=== PATIENT | female | born 1990 | race Caucasian/White ===

== ENCOUNTER 2017-07-14 01:11 | Emergency (ER) | payer SELFPAY ==
[~2017-07-14] VITALS: Ht 165.1 cm; Wt 128.4 kg
[~2017-07-14 01:11] MED LIST: ACE3 PO; CEPH250C37 PO; PROM-110 PO
--- NOTE | 2017-07-14 01:17 | ER Report ---
History and Physical Time Seen By MD: 01:13 HPI/ROS CHIEF COMPLAINT: Right lower lip swelling HISTORY OF PRESENT ILLNESS: 27-year-old female presents ambulatory to the ER concerned about her right lower lip. She had a lip piercing through her right lower lip. She noted some swelling and pain there. She removed the piercing. She notes a lump there. She notes moderate pain. There's been no drainage. Patient notes no difficulty swallowing or breathing. She denies dental pain Allergies: Coded Allergies: ondansetron (Verified Allergy, Intermediate, 03/26/17) rash, swelling Home Meds Active Scripts Cephalexin Monohydrate (CEPHALEXIN) 500 Mg Cap, 500 MG PO TID, #30 CAP TAKE 1 CAPSULE BY MOUTH tid Prov:NATAN CORONA DO 07/14/17 Discontinued Scripts Cephalexin (KEFLEX) 250 Mg Capsule, 500 MG PO Q6H, #26 CAPSULE Prov:EDDIE CURIEL [employer] 03/26/17 Past Medical/Surgical History Patient has a past medical and surgical history of migraines and depression broken right pinky finger. Reviewed Nurses Notes: Yes Old Medical Records Reviewed: Yes Hx Substance Use Disorder: No Constitutional Vital Sign - Last 24 Hours 07/14/17 07/14/17 01:15 01:35 Temp 97.9 Pulse 85 84 Resp 18 16 B/P (MAP) 142/88 139/94 (109) Pulse Ox 96 93 O2 Delivery Room Air Physical Exam General appearance: Alert no distress. Vital signs stable, afebrile HEENT: TMs normal, TMJs nontender, examination of the right lower lip reveals induration at the site of a piercing. Oropharynx without redness or exudate, teeth are good repair. Anterior cervical region is without lymphadenopathy Respiratory: Chest is non tender, lungs are clear to auscultation. Cardiac: Regular rate and rhythm DIFFERENTIAL DIAGNOSIS: After history and physical exam differential diagnosis was considered for cellulitis, mucous cyst, retained foreign body, allergic reaction Medical Decision Making ED Course/Re-evaluation ED Course Patient was admitted to an examination room. H&P was done. The differential diagnoses was considered. On clinical examination. Patient likely has an infection from the piercing site in her lip. She'll be covered with Keflex 500 mg 3 times a day. She is advised ibuprofen for pain treatment. She is advised warm compresses to her lip. She is advised follow-up with her primary care if unimproved in 3-5 days. Decision to Disposition Date: Jul 14, 2017 Decision to Disposition Time: 01:24 Depart Departure Latest Vital Signs Vital Signs Date Time Temp Pulse Resp B/P (MAP) Pulse Ox O2 Delivery O2 Flow Rate FiO2 07/14/17 01:35 84 16 139/94 (109) 93 07/14/17 01:15 97.9 Room Air Impression: Primary Impression: Cellulitis, lip Condition: Improved Disposition: HOME OR SELF-CARE New Scripts Cephalexin Monohydrate (CEPHALEXIN) 500 Mg Cap 500 MG PO TID, #30 CAP TAKE 1 CAPSULE BY MOUTH tid Prov: NATAN CORONA DO 07/14/17 Patient Instructions: Cellulitis (ED) Additional Instructions: Take ibuprofen 200 mg 3 tablets 3 times a day for pain relief Apply warm compresses or heating pad to your lip area 30 minutes 3-4 times per day Take Keflex 500 mg 3 times daily until gone Follow-up with her primary care if unimproved in 3-5 days NATAN CORONA DO Jul 14, 2017 01:17
[2017-07-14] MEDS ORDERED: CEPH500C24 PO (01:25)
[2017-07-14] MEDS ORDERED: CEPHALEXIN MONO 500 MG CAP PO ONE (01:30)
[2017-07-14 01:35] VITALS: BP 139/94
== END 2017-07-14 01:37 | disposition home or self-care (01) ==
LOC: ER 01:13
DX: K13.0 Diseases of lips (principal)
CPT/HCPCS: 99281

== ENCOUNTER 2017-07-31 21:26 | Emergency (ER) | payer SELFPAY ==
[~2017-07-31 21:26] MED LIST changes: +CEPH500C24 PO
[2017-07-31] MEDS ORDERED: NS(*) 0.9% 1000 ML BAG 1,000 ML IV ONE (21:42)
[2017-07-31] MEDS ORDERED: PROMETHAZINE 25 MG/ML 1 ML AMP IVP ONE (21:45)
[2017-07-31 22:19] LABS: PLATELET COUNT, AUTOMATED 246 K/uL (150-450)
--- NOTE | 2017-07-31 22:48 | ER Report ---
History and Physical Time Seen By MD: 21:49 HPI/ROS CHIEF COMPLAINT: Vomiting, epigastric pain HISTORY OF PRESENT ILLNESS: 27-year-old female presented with her to the ER complaining of vomiting all day long. She's been unable to keep anything down. She denies exposure to ill contacts or consumption of bad food. She's had no diarrhea. She denies fever or chills. She denies dysuria, frequency or hematuria. She's had no previous history of abdominal surgery. REVIEW OF SYSTEMS: Respiratory: No cough, no dyspnea. Cardiovascular: No chest pain, no palpitations. Gastrointestinal: As above Musculoskeletal: No back pain. Allergies: Coded Allergies: ondansetron (Verified Allergy, Intermediate, 03/26/17) rash, swelling Home Meds Active Scripts Oxycodone Hcl/Acetaminophen (PERCOCET 5-325 MG TABLET) 1 Each Tablet, 1 EACH PO Q4-6H Y for PAIN, #12 Prov:CJNATAN DO 07/31/17 Promethazine Hcl (PROMETHAZINE HCL) 25 Mg Tablet, 25 MG PO Q4H Y for NAUSEA/ VOMITING, #14 TAB Prov:NATAN CORONA DO 07/31/17 Discontinued Scripts Cephalexin Monohydrate (CEPHALEXIN) 500 Mg Cap, 500 MG PO TID, #30 CAP TAKE 1 CAPSULE BY MOUTH tid Prov:NATAN CORONA 07/14/17 Reviewed Nurses Notes: Yes Old Medical Records Reviewed: Yes Hx Substance Use Disorder: No Constitutional Vital Sign - Last 24 Hours 07/31/17 07/31/17 07/31/17 07/31/17 21:34 21:41 21:49 21:56 Temp 97.8 Pulse 123 118 106 Resp 20 B/P (MAP) 123/94 (104) 123/94 Pulse Ox 92 92 90 O2 Delivery Room Air 07/31/17 07/31/17 07/31/17 07/31/17 22:11 22:26 22:41 22:56 Pulse 113 96 87 92 B/P (MAP) 141/58 (85) Pulse Ox 90 91 96 92 07/31/17 07/31/17 23:00 23:05 Pulse 98 B/P (MAP) 108/88 (95) Pulse Ox 92 Physical Exam General Appearance: The patient is alert, has no immediate need for airway protection and no current signs of toxicity. Vital signs stable, afebrile, slightly pale appearing, pulse ox normal HEENT: Pupils equal and round no injection. Oropharynx with dry mucous membranes. Throat without erythema Respiratory: Chest is non tender, lungs are clear to auscultation. Cardiac: regular rate and rhythm Gastrointestinal: Abdomen is soft and non tender, no masses, bowel sounds normal. Musculoskeletal: Neck: Neck is supple and non tender. No lymphadenopathy Extremities have full range of motion and are non tender. Skin: No rashes or lesions. DIFFERENTIAL DIAGNOSIS: After history and physical exam differential diagnosis was considered for abdominal pain including but not limited to appendicitis, cholecystitis, gastritis and urinary tract infection. Medical Decision Making Data Points Result Diagram: 07/31/17220807/31/172208 Laboratory Hematology Test 07/31/17 21:40 07/31/17 22:09 Urine Color Yellow Urine Clarity Cloudy Urine pH 5.0 pH (4.8-9.5) Urine Specific [place] 1.027 Urine Protein 30 mg/dL (NEGATIVE) Urine Glucose (UA) Negative mg/dL (NEGATIVE) Urine Ketones Negative mg/dL (NEGATIVE) Urine Blood Negative (NEGATIVE) Urine Nitrite Negative (NEGATIVE) Urine Bilirubin Negative (NEGATIVE) Urine Urobilinogen 2.0 mg/dL (0.2-1.9) Urine Leukocyte Esterase Negative (NEGATIVE) Urine RBC 3 /HPF (0-2/HPF) Urine WBC 2 /HPF (0-5/HPF) Urine Squamous Epithelial Cells Many /LPF (</=FEW) Urine Amorphous Crystals Few /HPF Urine Bacteria Negative /HPF (NONE-FEW) Urine Mucus Few /HPF (NONE-FEW) Red Blood Count 5.80 M/uL (4.17-5.56) Mean Corpuscular Volume 87.4 fL (80.0-96.0) Mean Corpuscular Hemoglobin 30.1 pg (26.0-33.0) Mean Corpuscular Hemoglobin Concent 34.4 g/dL (32.0-36.0) Red Cell Distribution Width 13.6 % (11.5-14.5) Mean Platelet Volume 9.7 fL (7.2-11.1) Neutrophils (%) (Auto) 93.7 % (39.4-72.5) Lymphocytes (%) (Auto) 3.1 % (17.6-49.6) Monocytes (%) (Auto) 2.3 % (4.1-12.4) Eosinophils (%) (Auto) 0.6 % (0.4-6.7) Basophils (%) (Auto) 0.3 % (0.3-1.4) Nucleated RBC Relative Count (auto) 0.1 /100WBC Neutrophils # (Auto) 15.7 K/uL (2.0-7.4) Lymphocytes # (Auto) 0.5 K/uL (1.3-3.6) Monocytes # (Auto) 0.4 K/uL (0.3-1.0) Eosinophils # (Auto) 0.1 K/uL (0.0-0.5) Basophils # (Auto) 0.0 K/uL (0.0-0.1) Nucleated RBC Absolute Count (auto) 0.03 K/uL Sodium Level 137 mmol/L (137-145) Potassium Level 3.9 mmol/L (3.5-5.0) Chloride Level 102 mmol/L (98-107) Carbon Dioxide Level 22 mmol/L (22-31) Blood Urea Nitrogen 13 mg/dl (7-18) Creatinine 0.60 mg/dl (0.52-1.04) Glomerular Filtration Rate Calc > 60.0 Random Glucose 102 mg/dl (75-110) Calcium Level 9.0 mg/dl (8.4-10.2) Total Bilirubin 0.6 mg/dl (0.2-1.3) Aspartate Amino Transf (AST/SGOT) 23 U/L (0-35) Alanine Aminotransferase (ALT/SGPT) 42 U/L (0-56) Alkaline Phosphatase 75 U/L (0-126) Total Protein 8.1 gm/dl (6.3-8.2) Albumin 4.1 g/dl (3.5-5.0) Amylase Level 62 U/L (0-110) Lipase 71 U/L (23-300) Human Chorionic Gonadotropin, Qual Negative (NEGATIVE) Chemistry Test 07/31/17 21:40 07/31/17 22:09 Urine Color Yellow Urine Clarity Cloudy Urine pH 5.0 pH (4.8-9.5) Urine Specific [place] 1.027 Urine Protein 30 mg/dL (NEGATIVE) Urine Glucose (UA) Negative mg/dL (NEGATIVE) Urine Ketones Negative mg/dL (NEGATIVE) Urine Blood Negative (NEGATIVE) Urine Nitrite Negative (NEGATIVE) Urine Bilirubin Negative (NEGATIVE) Urine Urobilinogen 2.0 mg/dL (0.2-1.9) Urine Leukocyte Esterase Negative (NEGATIVE) Urine RBC 3 /HPF (0-2/HPF) Urine WBC 2 /HPF (0-5/HPF) Urine Squamous Epithelial Cells Many /LPF (</=FEW) Urine Amorphous Crystals Few /HPF Urine Bacteria Negative /HPF (NONE-FEW) Urine Mucus Few /HPF (NONE-FEW) White Blood Count 16.8 k/uL (4.5-11.0) Red Blood Count 5.80 M/uL (4.17-5.56) Hemoglobin 17.4 g/dL (12.0-16.0) Hematocrit 50.7 % (34.0-47.0) Mean Corpuscular Volume 87.4 fL (80.0-96.0) Mean Corpuscular Hemoglobin 30.1 pg (26.0-33.0) Mean Corpuscular Hemoglobin Concent 34.4 g/dL (32.0-36.0) Red Cell Distribution Width 13.6 % (11.5-14.5) Platelet Count 246 K/uL (150-450) Mean Platelet Volume 9.7 fL (7.2-11.1) Neutrophils (%) (Auto) 93.7 % (39.4-72.5) Lymphocytes (%) (Auto) 3.1 % (17.6-49.6) Monocytes (%) (Auto) 2.3 % (4.1-12.4) Eosinophils (%) (Auto) 0.6 % (0.4-6.7) Basophils (%) (Auto) 0.3 % (0.3-1.4) Nucleated RBC Relative Count (auto) 0.1 /100WBC Neutrophils # (Auto) 15.7 K/uL (2.0-7.4) Lymphocytes # (Auto) 0.5 K/uL (1.3-3.6) Monocytes # (Auto) 0.4 K/uL (0.3-1.0) Eosinophils # (Auto) 0.1 K/uL (0.0-0.5) Basophils # (Auto) 0.0 K/uL (0.0-0.1) Nucleated RBC Absolute Count (auto) 0.03 K/uL Glomerular Filtration Rate Calc > 60.0 Calcium Level 9.0 mg/dl (8.4-10.2) Total Bilirubin 0.6 mg/dl (0.2-1.3) Aspartate Amino Transf (AST/SGOT) 23 U/L (0-35) Alanine Aminotransferase (ALT/SGPT) 42 U/L (0-56) Alkaline Phosphatase 75 U/L (0-126) Total Protein 8.1 gm/dl (6.3-8.2) Albumin 4.1 g/dl (3.5-5.0) Amylase Level 62 U/L (0-110) Lipase 71 U/L (23-300) Human Chorionic Gonadotropin, Qual Negative (NEGATIVE) Urinalysis Test 07/31/17 21:40 Urine Color Yellow Urine Clarity Cloudy Urine pH 5.0 pH (4.8-9.5) Urine Specific [place] 1.027 Urine Protein 30 mg/dL (NEGATIVE) Urine Glucose (UA) Negative mg/dL (NEGATIVE) Urine Ketones Negative mg/dL (NEGATIVE) Urine Blood Negative (NEGATIVE) Urine Nitrite Negative (NEGATIVE) Urine Bilirubin Negative (NEGATIVE) Urine Urobilinogen 2.0 mg/dL (0.2-1.9) Urine Leukocyte Esterase Negative (NEGATIVE) Urine RBC 3 /HPF (0-2/HPF) Urine WBC 2 /HPF (0-5/HPF) Urine Squamous Epithelial Cells Many /LPF (</=FEW) Urine Amorphous Crystals Few /HPF Urine Bacteria Negative /HPF (NONE-FEW) Urine Mucus Few /HPF (NONE-FEW) ED Course/Re-evaluation Clinical Indication for ER IV: Hydration, IV Access ED Course Patient was admitted to an examination room. H&P was done. The differential diagnoses was considered. On clinical examination. Patient has mild epigastric discomfort. She has benign nonsurgical examination. Patient's treated with IV fluids, Phenergan IV. She has an allergy to Zofran. Her diagnostic studies return. Elevated white blood cell count of 17,000. Other labs are otherwise unremarkable. She reports improvement of her symptoms. She' ll be discharged home on Phenergan and Percocet. She is advised a clear liquid diet for 24-48 hours. Patient advised to follow-up with primary care if unimproved in 3-5 days. Decision to Disposition Date: Jul 31, 2017 Decision to Disposition Time: 22:52 Depart Departure Latest Vital Signs Vital Signs Date Time Temp Pulse Resp B/P (MAP) Pulse Ox O2 Delivery O2 Flow Rate FiO2 07/31/17 23:05 98 92 07/31/17 23:00 108/88 (95) 07/31/17 21:49 97.8 20 Room Air Impression: Primary Impression: Gastroenteritis Additional Impression: Leukocytosis Condition: Improved Disposition: HOME OR SELF-CARE New Scripts Oxycodone Hcl/Acetaminophen (PERCOCET 5-325 MG TABLET) 1 Each Tablet 1 EACH PO Q4-6H Y for PAIN, #12 Prov: NATAN CORONA DO 07/31/17 Promethazine Hcl (PROMETHAZINE HCL) 25 Mg Tablet 25 MG PO Q4H Y for NAUSEA/VOMITING, #14 TAB Prov: NATAN CORONA DO 07/31/17 Patient Instructions: Clear Liquid Diet (ED), Gastroenteritis (ED) Additional Instructions: Follow clear liquid diet for 24-48 hours, then advance to [place] diet, bananas, rice, applesauce, toast Take ibuprofen 200 mg 3 tablets 3 times a day for inflammatory pain relief Follow-up with primary care if unimproved in 3-5 days Problem Qualifiers Additional Impression: Leukocytosis Leukocytosis type: unspecified Qualified Codes: D72.829 - Elevated white blood cell count, unspecified NATAN CORONA DO Jul 31, 2017 22:48
[2017-07-31] MEDS ORDERED: OXYC-865 PO (22:54)
[2017-07-31] MEDS ORDERED: PROM-110 PO (22:54)
[2017-07-31] MEDS ORDERED: PROMETHAZINE HCL 25 MG TAB TH 2 TAB/BOTTLE PO ONE (22:55)
[2017-07-31] MEDS ORDERED: oxyCODONE/ACETAMIN 5/325MG TH 2 TAB/BOTTLE PO ONE (22:55)
[2017-07-31 23:00] VITALS: BP 108/88
== END 2017-07-31 23:11 | disposition home or self-care (01) ==
LOC: ER 22:21
DX: K52.9 Noninfective gastroenteritis and colitis, unspecified (principal); D72.829 Elevated white blood cell count, unspecified
CPT/HCPCS: 81001; 82150; 83690; 84703; 85025; 96361; 96374; 99284; J2550; J7030; 82040; 82247; 82310; 82374; 82435; 82565; 82947; 84075; 84132; 84155; 84295; 84450; 84460; 84520

== ENCOUNTER 2017-09-16 00:27 | Emergency (ER) | payer SELFPAY ==
[~2017-09-16 00:27] MED LIST changes: +OXYC-865 PO
[2017-09-16 00:33] VITALS: BP 143/79
--- NOTE | 2017-09-16 00:40 | ER Report ---
History and Physical Time Seen By MD: 00:40 Hx. of Stated Complaint: patient has two small open areas to left breast fold, skin is reddened and raised. patient has pain in area. patient just noticed tonight when changing into [facility]. HPI/ROS CHIEF COMPLAINT: Sore under her left breast HISTORY OF PRESENT ILLNESS: This is a 27-year-old female. She was changing closing to her pajaors tonight and noticed a sore spot under her left breast. Small open sore there, pain and warmth. She has had a few similar skin lesions in the past but just resolved on their own. This seemed a little worse than what she is experiencing the past someone to get it checked out. She denies any fevers or chills. Allergies: Coded Allergies: ondansetron (Verified Allergy, Intermediate, 03/26/17) rash, swelling Home Meds Active Scripts Sulfamethoxazole/Trimet 800-160 Mg Tab (BACTRIM DS TABLET) 1 Each Tablet, 1 TAB PO Q12H, #14 TAB 0 Refills Prov:RALPH GORMAN MD 09/16/17 Discontinued Scripts Oxycodone Hcl/Acetaminophen (PERCOCET 5-325 MG TABLET) 1 Each Tablet, 1 EACH PO Q4-6H Y for PAIN, #12 Prov:NATAN CORONA DO 07/31/17 Promethazine Hcl (PROMETHAZINE HCL) 25 Mg Tablet, 25 MG PO Q4H Y for NAUSEA/ VOMITING, #14 TAB Prov:NATAN CORONA DO 07/31/17 Reviewed Nurses Notes: Yes Hx Substance Use Disorder: No Constitutional Vital Sign - Last 24 Hours 09/16/17 00:33 Temp 99.0 Pulse 97 Resp 20 B/P (MAP) 143/79 Pulse Ox 96 O2 Delivery Room Air Physical Exam General: Alert, no acute distress Skin: Small area about 2 cm in diameter of redness and induration with 2 small areas of skin breakdown in the center area of this. No drainage. No fluctuant pocket noted. Medical Decision Making ED Course/Re-evaluation ED Course After evaluation of the skin lesion, it appears to be early cellulitis without abscess formation. Recommended wound care and use of Bactrim DS twice a day for 7 days. Decision to Disposition Date: Sep 16, 2017 Decision to Disposition Time: 00:47 Depart Departure Latest Vital Signs Vital Signs Date Time Temp Pulse Resp B/P (MAP) Pulse Ox O2 Delivery O2 Flow Rate FiO2 09/16/17 00:33 99.0 97 20 143/79 96 Room Air Impression: Primary Impression: Cellulitis of breast Condition: Improved Disposition: HOME OR SELF-CARE New Scripts Sulfamethoxazole/Trimet 800-160 Mg Tab (BACTRIM DS TABLET) 1 Each Tablet 1 TAB PO Q12H, #14 TAB 0 Refills Prov: RALPH GORMAN MD 09/16/17 Patient Instructions: Cellulitis (ED) Additional Instructions: Wound Care: Wash the wound once a day with soap and water. Dry the wound and apply a small amount of antibiotic ointment with a clean dressing. If the dressing becomes wet or dirty, repeat cleaning and dressing as above. Pain Control: Use Tylenol or ibuprofen for pain. Using and ice pack can help reduce swelling. Antibiotic: Bactrim DS twice a day for 7 days. RALPH GORMAN MD Sep 16, 2017 00:40
[2017-09-16] MEDS ORDERED: SULF-198 PO (00:48)
[2017-09-16] MEDS ORDERED: TRIMETHOPRIM/SULFA 160-800 TH 2 TAB/BOTTLE PO ONE (00:50)
== END 2017-09-16 01:07 | disposition home or self-care (01) ==
LOC: ER 00:40
DX: N61.0 Mastitis without abscess (principal)
CPT/HCPCS: 99282

== ENCOUNTER 2017-09-20 19:45 | Emergency (ER) | payer SELFPAY ==
[~2017-09-20 19:45] MED LIST changes: +SULF-198 PO
--- NOTE | 2017-09-20 19:46 | ER Report ---
History and Physical Time Seen By MD: 19:46 HPI/ROS CHIEF COMPLAINT: Low back pain HISTORY OF PRESENT ILLNESS: 27-year-old female presents ambulatory to the ER complaining of severe low back pain. Patient states she got out of bed this morning was unable to stand up due to low back pain. She recalls no specific injury yesterday. She has no history of previous back problems. Anything out of the ordinary. She describes 9/10 pain radiating across her lower lumbar region. It does not radiate to her lower extremity's. She notes no incontinence. She was seen here several days ago for a red area on her left breast and was started on Bactrim DS. It's unlikely that she has urinary tract infection. She denies dysuria, frequency and hematuria. She denies family history of degenerative arthritis of the lumbar spine. REVIEW OF SYSTEMS: Respiratory: No cough, no dyspnea. Cardiovascular: No chest pain, no palpitations. Gastrointestinal: No vomiting, no abdominal pain. Musculoskeletal: As above Allergies: Coded Allergies: ondansetron (Verified Allergy, Intermediate, 09/20/17) rash, swelling Home Meds Active Scripts Oxycodone Hcl/Acetaminophen (PERCOCET 5-325 MG TABLET) 1 Each Tablet, 1-2 EACH PO Q4-6H Y for PAIN, #12 Prov:NATAN CORONA DO 09/20/17 Methocarbamol (ROBAXIN-750) 750 Mg Tablet, 1-2 TAB PO TID Y for muscle spasm relief, #15 Prov:NATAN CORONA DO 09/20/17 Sulfamethoxazole/Trimet 800-160 Mg Tab (BACTRIM DS TABLET) 1 Each Tablet, 1 TAB PO Q12H, #14 TAB 0 Refills Prov:RALPH GORMAN MD 09/16/17 Discontinued Scripts Oxycodone Hcl/Acetaminophen (PERCOCET 5-325 MG TABLET) 1 Each Tablet, 1 EACH PO Q4-6H Y for PAIN, #12 Prov:NATAN CORONA DO 07/31/17 Promethazine Hcl (PROMETHAZINE HCL) 25 Mg Tablet, 25 MG PO Q4H Y for NAUSEA/ VOMITING, #14 TAB Prov:NATAN CORONA DO 07/31/17 Reviewed Nurses Notes: Yes Old Medical Records Reviewed: Yes Hx Substance Use Disorder: No Constitutional Vital Sign - Last 24 Hours 09/20/17 09/20/17 19:55 20:33 Temp 98.7 Pulse 111 96 Resp 14 14 B/P (MAP) 109/95 112/48 (69) Pulse Ox 94 94 O2 Delivery Room Air Room Air Physical Exam General Appearance: The patient is alert, has no immediate need for airway protection and no current signs of toxicity. Moderate distress. Vital signs stable, afebrile, pulse ox normal Eyes: Pupils equal and round no injection. Respiratory: Chest is non tender, lungs are clear to auscultation. Cardiac: regular rate and rhythm Gastrointestinal: Abdomen is soft and non tender, no masses, bowel sounds normal. Musculoskeletal: Neck: Neck is supple and non tender. Back: There is no tenderness in the lumbar spine on palpation of the midline. There is mild tenderness in the muscles bilaterally, there is negative straight leg raise bilaterally. Extremities have full range of motion and are non tender. No edema, no calf tenderness Skin: No rashes or lesions. Neuro: Motor 5/5 bilateral lower extremities, sensory intact to light touch. DIFFERENTIAL DIAGNOSIS: After history and physical exam differential diagnosis was considered for back pain including but not limited to muscular pain, herniated disc, spine fracture, intra-abdominal causes and urinary tract infection. Medical Decision Making EKG/Imaging Imaging X-ray: Lumbar spine, 3 views was obtained. I viewed the images myself on the PACS system. My interpretation of the images is: All disc space appear preserved except for L5-S1. There is significant loss of disc space., No obvious fracture, no malalignment. The radiologist interpretation had no clinically significant variation from this interpretation. ED Course/Re-evaluation ED Course Patient was admitted to the examination room. H&P was done. The differential diagnoses was considered. On clinical examination. Patient has a nonfocal neurologic examination. She has acute low back pain. She has no urinary tract symptoms. She already taking Bactrim DS for cellulitis of the left breast. Diagnostic x-rays show no abnormality of the lumbar spine. Patient's advised to conservative treatment plan. Patient given a limited supply of Percocet and Robaxin for temporary symptomatically relief. She is advised to take ibuprofen 600 mg 3 times daily Decision to Disposition Date: Sep 20, 2017 Decision to Disposition Time: 20:33 Depart Departure Latest Vital Signs Vital Signs Date Time Temp Pulse Resp B/P (MAP) Pulse Ox O2 Delivery O2 Flow Rate FiO2 09/20/17 20:33 96 14 112/48 (69) 94 Room Air 09/20/17 19:55 98.7 Impression: Primary Impression: Low back strain Condition: Improved Disposition: HOME OR SELF-CARE Referrals: ELEAZAR WEINSTEIN MD New Scripts Oxycodone Hcl/Acetaminophen (PERCOCET 5-325 MG TABLET) 1 Each Tablet 1-2 EACH PO Q4-6H Y for PAIN, #12 Prov: NATAN CORONA DO 09/20/17 Methocarbamol (ROBAXIN-750) 750 Mg Tablet 1-2 TAB PO TID Y for muscle spasm relief, #15 Prov: NATAN CORONA DO 09/20/17 Patient Instructions: Low Back Strain (ED) Additional Instructions: Take ibuprofen 200 mg 3-4 tablets 3 times a day with food Apply a heating pad to your back area Follow-up with primary care if unimproved in 3-5 days Problem Qualifiers Primary Impression: Low back strain Encounter type: initial encounter Qualified Codes: S39.012A - Strain of muscle, fascia and tendon of lower back, initial encounter NATAN CORONA DO Sep 20, 2017 19:46
[2017-09-20] MEDS ORDERED: METHOCARBAMOL 500 MG TAB PO ONE (20:00)
[2017-09-20 20:33] VITALS: BP 112/48
[2017-09-20] MEDS ORDERED: METH-543 PO (20:35)
[2017-09-20] MEDS ORDERED: OXYC-865 PO (20:35)
--- NOTE | 2017-09-20 20:45 | RADIOLOGY IMAGING REPORT ---
FACILITY: [facility] PATIENT NAME: Scarlett Ovalle : 1990 MR: [id number] V: [id number] EXAM DATE: ORDERING PHYSICIAN: NATAN CORONA TECHNOLOGIST: Location: [facility] Patient: Scarlett Ovalle : 1990 Visit/Account:[id number] Date of Sevice: 09/20/2017 Examination: LUMBAR SPINE 2 OR 3 VIEW Comparison: None. History: Low back pain since this morning. No known injury. Findings: 5 lumbar type vertebral bodies. Vertebral body height and alignment is within normal limits . Thoracolumbar, lumbosacral, and sacroiliac joint alignment is preserved. Disc spaces are within nor mal limits. Visualized soft tissues are unremarkable. IMPRESSION: Negative lumbar spine. Report Dictated By: Jarad Jacques MD at 09/20/2017 8:41 PM Report E-Signed By: Jarad Jacques MD at 09/20/2017 8:42 PM WSN:[id number]
[2017-09-20] MEDS ORDERED: oxyCODONE/ACETAMIN 5/325MG TH 2 TAB/BOTTLE PO ONE (20:55)
== END 2017-09-20 20:55 | disposition home or self-care (01) ==
LOC: ER 20:05
DX: S39.012A Strain of muscle, fascia and tendon of lower back, initial encounter (principal)
CPT/HCPCS: 72100; 99283

== ENCOUNTER 2017-12-14 23:04 | Emergency (ER) | payer SELFPAY ==
[~2017-12-14 23:04] MED LIST changes: +METH-543 PO
--- NOTE | 2017-12-14 23:10 | ER Report ---
History and Physical Time Seen By MD: 23:09 HPI/ROS CHIEF COMPLAINT: Right TMJ pain HISTORY OF PRESENT ILLNESS: Patient is a 27-year-old female here with complaints of right jaw pain which has been present for some time however is acutely worsening especially with chewing. She reports pain at the right angle of her jaw with mastication. 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 Patient denies difficulty swallowing, fevers, blurred vision, headache, neck pain or trauma. REVIEW OF SYSTEMS: Constitutional: No fever, no chills. Eyes: No discharge. ENT: No sore throat, + right jaw pain with mastication or movement Cardiovascular: No chest pain, no palpitations. Respiratory: No cough, no shortness of breath. Gastrointestinal: No abdominal pain, no vomiting. Genitourinary: No hematuria. Musculoskeletal: No back pain. Skin: No rashes. Neurological: No headache. Allergies: Coded Allergies: ondansetron (Verified Allergy, Intermediate, 12/14/17) rash, swelling Home Meds Active Scripts Tramadol Hcl (TRAMADOL HCL) 50 Mg Tablet, 50 MG PO Q6H Y for PAIN, #12 TAB 0 Refills Prov:SANDEEP WILDER DO 12/15/17 Naproxen Sodium (ALEVE) 220 Mg Capsule, 440 MG PO BID for PAIN for 7 Days, #14 CAPSULE Prov:SANDEEP WILDER DO 12/15/17 Discontinued Scripts Oxycodone Hcl/Acetaminophen (PERCOCET 5-325 MG TABLET) 1 Each Tablet, 1-2 EACH PO Q4-6H Y for PAIN, #12 Prov:NATAN CORONA DO 09/20/17 Methocarbamol (ROBAXIN-750) 750 Mg Tablet, 1-2 TAB PO TID Y for muscle spasm relief, #15 Prov:NATAN CORONA DO 09/20/17 Sulfamethoxazole/Trimet 800-160 Mg Tab (BACTRIM DS TABLET) 1 Each Tablet, 1 TAB PO Q12H, #14 TAB 0 Refills Prov:RALPH GORMAN MD 09/16/17 Hx Substance Use Disorder: No Constitutional Vital Sign - Last 24 Hours 12/14/17 23:08 Temp 98.6 Pulse 114 Resp 16 B/P (MAP) 138/91 Pulse Ox 92 O2 Delivery Room Air Physical Exam General Appearance: The patient is alert, has no immediate need for airway protection and no signs of toxicity. + uncomfortable due to jaw pain Eyes: Pupils equal and round no pallor or injection. ENT, Mouth: Mucous membranes are moist, + good dentition without signs of infection or decay, + pain on palpation of right TMJ Respiratory: There are no retractions, lungs are clear to auscultation. Cardiovascular: Regular rate and rhythm. Gastrointestinal: Abdomen is soft and non tender, no masses, bowel sounds normal. Neurological: No focal deficits Skin: Warm and dry, no rashes. Musculoskeletal: Neck is supple non tender. DIFFERENTIAL DIAGNOSIS: After history and physical exam differential diagnosis was considered for TMJ syndrome, jaw fracture, dental abscess, IRON MELTER. Medical Decision Making EKG/Imaging Imaging FACIAL BONES < 3 VIEW Indication: + right jaw pain Comparison: None. Findings: Mandible and facial bones are intact. Paranasal sinuses are clear. IMPRESSION: Normal facial bones radiograph. ED Course/Re-evaluation ED Course Patient is a 27-year-old female who complains of right jaw pain consistent with TMJ syndrome which she has been previously diagnosed with. Patient reports worsening pain today especially with mastication or general closure. Patient denies difficulty swallowing, odynophagia, She does complain of right ear pain however on evaluation, the TM is intact without any air-fluid levels. He does have some tenderness and mild crepitus to the right TMJ. X-ray imaging of the jaw and soft tissue showed no acute findings. I gave the patient Toradol for pain relief and advised her to follow up with oral maxillofacial surgeon. Patient was sent home on a prescription for naproxen and tramadol for pain relief and advised to eat soft food and liquids for the time being. Decision to Disposition Date: Dec 15, 2017 Decision to Disposition Time: 00:23 Depart Departure Latest Vital Signs Vital Signs Date Time Temp Pulse Resp B/P (MAP) Pulse Ox O2 Delivery O2 Flow Rate FiO2 12/14/17 23:08 98.6 114 16 138/91 92 Room Air Impression: Primary Impression: TMJ (temporomandibular joint disorder) Condition: Improved Disposition: HOME OR SELF-CARE New Scripts Tramadol Hcl (TRAMADOL HCL) 50 Mg Tablet 50 MG PO Q6H Y for PAIN, #12 TAB 0 Refills Prov: SANDEEP WILDER DO 12/15/17 Naproxen Sodium (ALEVE) 220 Mg Capsule 440 MG PO BID for PAIN for 7 Days, #14 CAPSULE Prov: SANDEEP WILDER DO 12/15/17 Patient Instructions: Naproxen (By mouth), Tramadol (By mouth) Additional Instructions: You may take 1 tablet of naproxen every 12 hours as needed for pain control. If your pain persists, you may take one tablet of Tramadol every 6-8 hours as needed for pain. Please follow-up with oral maxillofacial surgery for further evaluation of this problem. Please return promptly if you develop worsening pain , difficulty swallowing, difficulty eating, fevers or chills. SANDEEP WILDER DO Dec 14, 2017 23:10
[2017-12-14] MEDS ORDERED: KETOROLAC 60 MG/2 ML VIAL IM ONE (23:20)
[2017-12-15 00:04] VITALS: BP 136/118
--- NOTE | 2017-12-15 00:22 | RADIOLOGY IMAGING REPORT ---
FACILITY: [facility] PATIENT NAME: Scarlett Ovalle : 1990 MR: [id number] V: [id number] EXAM DATE: ORDERING PHYSICIAN: SANDEEP WILDER TECHNOLOGIST: Location: [facility] Patient: Scarlett Ovalle : 1990 Visit/Account:[id number] Date of Sevice: 12/14/2017 FACIAL BONES < 3 VIEW Indication: + right jaw pain Comparison: None. Findings: Mandible and facial bones are intact. Paranasal sinuses are clear. IMPRESSION: Normal facial bones radiograph. Report Dictated By: Nikolay Cabezas at 12/15/2017 12:17 AM Report E-Signed By: Nikolay Cabezas at 12/15/2017 12:18 AM WSN:[id number]
[2017-12-15] MEDS ORDERED: TRAM-420 PO (00:25)
[2017-12-15] MEDS ORDERED: NAPR220C12 PO (00:25)
[2017-12-15] MEDS ORDERED: traMADol 50 MG TAB TH 2 TAB/BOTTLE PO ONE (00:35)
== END 2017-12-15 00:40 | disposition home or self-care (01) ==
LOC: ER 23:32
DX: M26.601 Right temporomandibular joint disorder, unspecified (principal)
CPT/HCPCS: 70140; 96372; 99283; C9399; J1885

== ENCOUNTER 2018-01-10 00:39 | Emergency (ER) | payer SELFPAY ==
[~2018-01-10 00:39] MED LIST changes: +NAPR220C12 PO; +TRAM-420 PO
--- NOTE | 2018-01-10 00:42 | ER Report ---
History and Physical Time Seen By MD: 00:41 HPI/ROS CHIEF COMPLAINT: Left ankle injury HISTORY OF PRESENT ILLNESS: Patient is a 27-year-old female here with complaints of left ankle injury which she sustained at approximately 1730 last night when she misstepped while walking on steps. Patient reports having difficulty ambulating and weightbearing and significant swelling and pain at the site. Patient is neurovascularly intact at time of evaluation. Patient significant pain present on the lateral malleolus. Denies other injury at this time. REVIEW OF SYSTEMS: Musculoskeletal: + Tenderness and edema of the lateral foot and ankle with decreased ROM Skin: No acute findings Neuro: NV intact of foot Allergies: Coded Allergies: ondansetron (Verified Allergy, Intermediate, 01/10/18) rash, swelling Home Meds Active Scripts Naproxen Sodium (ALEVE) 220 Mg Capsule, 440 MG PO BID, #20 CAPSULE Prov:WILDER,SANDEEP S DO 01/10/18 Tramadol Hcl (TRAMADOL HCL) 50 Mg Tablet, 50 MG PO Q6H Y for PAIN, #6 TAB 0 Refills Prov:SANDEEP WILDER DO 01/10/18 Discontinued Scripts Tramadol Hcl (TRAMADOL HCL) 50 Mg Tablet, 50 MG PO Q6H Y for PAIN, #12 TAB 0 Refills Prov:WLIDERSANDEEP WHITTINGTON DO 12/15/17 Naproxen Sodium (ALEVE) 220 Mg Capsule, 440 MG PO BID for PAIN for 7 Days, #14 CAPSULE Prov:WILDERSANDEEP Steven DO 12/15/17 Hx Substance Use Disorder: No Constitutional Vital Sign - Last 24 Hours 01/10/18 01/10/18 01/10/18 01/10/18 00:43 00:54 01:00 01:09 Temp 98.7 Pulse 103 105 105 Resp 24 B/P (MAP) 134/90 120/83 (95) Pulse Ox 93 94 92 O2 Delivery Room Air Physical Exam General Appearance: The patient is alert, has no immediate need for airway protection and no current signs of toxicity. NAD Musculoskeletal: + lateral ankle pain and edema Skin: + mild ecchymosis of the left lateral foot DIFFERENTIAL DIAGNOSIS: After history and physical exam differential diagnosis was considered for fracture, sprain, dislocation, contusion Medical Decision Making EKG/Imaging Imaging ANKLE 3 VIEW MIN LEFT HISTORY: Fell Three-view examination of left ankle. FINDINGS: No acute fracture. The distal tibia and fibula are well-maintained with no fractures noted. Ankle mortise intact and well aligned. No joint effusion. Talus , calcaneus and mid foot structures well-maintained. Plantar spurring and enthesopathy change noted. IMPRESSION: 1. Negative left ankle for acute bony pathology ED Course/Re-evaluation ED Course Patient is a 27-year-old female here with complaints of left ankle pain after stepping and injuring her foot. Patient reports difficulty ambulating and difficulty bearing weight due to pain. X-ray imaging showed no acute fracture. Patient was given prescription for tramadol and naproxen. Patient's ankle brace was re applied for support. Patient was able to ambulate prior to discharge. Decision to Disposition Date: Jan 10, 2018 Decision to Disposition Time: 01:16 Depart Departure Latest Vital Signs Vital Signs Date Time Temp Pulse Resp B/P (MAP) Pulse Ox O2 Delivery O2 Flow Rate FiO2 01/10/18 01:09 105 92 01/10/18 01:00 120/83 (95) 01/10/18 00:43 98.7 24 Room Air Impression: Primary Impression: Right ankle pain Condition: Improved Disposition: HOME OR SELF-CARE New Scripts Naproxen Sodium (ALEVE) 220 Mg Capsule 440 MG PO BID, #20 CAPSULE Prov: SANDEEP WILDER DO 01/10/18 Tramadol Hcl (TRAMADOL HCL) 50 Mg Tablet 50 MG PO Q6H Y for PAIN, #6 TAB 0 Refills Prov: SANDEEP WILDER DO 01/10/18 Patient Instructions: Ankle Sprain (ED) Additional Instructions: You may take 1 tablet of tramadol every 6-8 hours as needed for breakthrough pain. You may take naproxen every 12 hours as needed for pain. Please follow-up with your family doctor in one week. Please return promptly if you develop worsening pain, numbness, rash. SANDEEP WILDER DO Jan 10, 2018 00:42
[2018-01-10] MEDS ORDERED: KETOROLAC 30 MG/ML VIAL IM ONE (00:50)
[2018-01-10 01:00] VITALS: BP 120/83
[2018-01-10] MEDS ORDERED: TRAM-420 PO (01:04)
[2018-01-10] MEDS ORDERED: NAPR220C12 PO (01:04)
--- NOTE | 2018-01-10 01:14 | RADIOLOGY IMAGING REPORT ---
FACILITY: [facility] PATIENT NAME: Scarlett Ovalle : 1990 MR: [id number] V: [id number] EXAM DATE: ORDERING PHYSICIAN: SANDEEP WILDER TECHNOLOGIST: Location: [facility] [place] Patient: Scarlett Ovalle : 1990 Visit/Account:[id number] Date of Sevice: 01/10/2018 ANKLE 3 VIEW MIN LEFT HISTORY: Fell Three-view examination of left ankle. FINDINGS: No acute fracture. The distal tibia and fibula are well-maintained with no fractures noted. Ankle mor tise intact and well aligned. No joint effusion. Talus, calcaneus and mid foot structures well-mainta ined. Plantar spurring and enthesopathy change noted. IMPRESSION: 1. Negative left ankle for acute bony pathology Report Dictated By: Brandt Ortega MD at 01/10/2018 1:06 AM Report E-Signed By: Brandt Ortega MD at 01/10/2018 1:10 AM WSN:[id number]
[2018-01-10] MEDS ORDERED: traMADol 50 MG TAB TH 2 TAB/BOTTLE PO ONE (01:15)
== END 2018-01-10 01:23 | disposition home or self-care (01) ==
LOC: ER 01:00
DX: M25.572 Pain in left ankle and joints of left foot (principal)
CPT/HCPCS: 73610; 96372; 99283; C9399; J1885

== ENCOUNTER 2018-01-23 12:58 | Emergency (ER) | payer SELFPAY ==
--- NOTE | 2018-01-23 13:17 | ER Report ---
History and Physical Time Seen By MD: 13:16 Hx. of Stated Complaint: BILAT HIP PAIN STARTED AT MIDNIGHT LAST NOC, NO KNOWN INJURY HPI/ROS CHIEF COMPLAINT: Low back pain into bilateral hips HISTORY OF PRESENT ILLNESS: This is a 27-year-old female who presents to the emergency department with recurrent low back pain. Patient states that last night about midnight she began to develop some lower lumbar and sacral back pain which radiated into both hips. Patient denies loss of bowel or bladder, no urinary retention. The patient was seen and evaluated here couple months ago for similar symptoms, she was told that she had a disc problem and was given medications and sent home. I did tell the patient that if this is a recurrent issue that she needs to follow-up with Dr. Keith at [facility] for fci evaluation and care. REVIEW OF SYSTEMS: Respiratory: No cough, no dyspnea. Cardiovascular: No chest pain, no palpitations. Gastrointestinal: No vomiting, no abdominal pain. Musculoskeletal: As above. Allergies: Coded Allergies: ondansetron (Verified Allergy, Intermediate, 01/23/18) rash, swelling Home Meds Active Scripts Cyclobenzaprine Hcl (CYCLOBENZAPRINE HCL) 10 Mg Tablet, 5-10 MG PO TID Y for MUSCLE SPASMS, #9 TAB Prov:LINNEA YU AUTOMATION TESTER-BC 01/23/18 Discontinued Scripts Naproxen Sodium (ALEVE) 220 Mg Capsule, 440 MG PO BID, #20 CAPSULE Prov:SANDEEP WILDER DO 01/10/18 Tramadol Hcl (TRAMADOL HCL) 50 Mg Tablet, 50 MG PO Q6H Y for PAIN, #6 TAB 0 Refills Prov:SANDEEP WILDER DO 01/10/18 Past Medical/Surgical History The patient has a past medical and surgical history of migraines, depression, broken right pinky. Reviewed Nurses Notes: Yes Hx Substance Use Disorder: No Constitutional Vital Sign - Last 24 Hours 01/23/18 01/23/18 01/23/18 01/23/18 13:05 13:07 13:15 13:30 Temp 98.7 Pulse 96 100 93 Resp 14 B/P (MAP) 138/96 138/96 (110) 128/86 (100) Pulse Ox 94 93 93 O2 Delivery Room Air 01/23/18 01/23/18 01/23/18 01/23/18 14:00 14:15 14:30 14:45 Pulse 91 91 81 79 B/P (MAP) 121/81 (94) 135/92 (106) Pulse Ox 90 93 92 91 01/23/18 01/23/18 01/23/18 15:00 15:15 15:30 Pulse 83 88 83 B/P (MAP) 137/89 (105) 114/71 (85) Pulse Ox 91 93 94 Physical Exam General Appearance: The patient is alert, has no immediate need for airway protection and no current signs of toxicity. Eyes: Pupils equal and round no injection. Respiratory: Chest is non tender, lungs are clear to auscultation. Cardiac: regular rate and rhythm. Gastrointestinal: Abdomen is round, soft and non tender, no masses, bowel sounds normal. Musculoskeletal: Neck: Neck is supple and non tender. Lumbar/sacral discomfort with palpation, no step-offs, crepitus over his deformities. Diffuse tenderness to the right buttock and left buttocks with palpation however no hip pain. Extremities have full range of motion and are non tender. Skin: No rashes or lesions. DIFFERENTIAL DIAGNOSIS: After history and physical exam differential diagnosis was considered for back pain including but not limited to muscular pain, herniated disc, spine fracture, intra-abdominal causes and urinary tract infection. Medical Decision Making EKG/Imaging Imaging Exam type: LUMBAR SPINE 4 VIEWS History: low back pain into hips. No known injury Comparison: September 20, 2017. Findings: Five nonrib-bearing lumbar-type vertebral bodies present. There is no evidence of acute fractures or subluxations. The vertebral bodies are normal anatomic alignment. IMPRESSION: 1. No evidence of acute fracture or subluxation lumbar spine Report Dictated By: Marcelle Sandoval MD at 01/23/2018 2:53 PM Report E-Signed By: Marcelle Sandoval MD at 01/23/2018 2:55 PM WSN:[email or web address] Exam type: SACROILIAC JOINTS 3 OR > VIEWS History: low back pain into hips. No known injury Comparison: None. Findings: The SI joints are symmetric bilaterally. No significant arthritic change seen. No visualized fracture. IMPRESSION: 1. Unremarkable SI joints Report Dictated By: Marcelle Sandoval MD at 01/23/2018 2:47 PM Report E-Signed By: Marcelle Sandoval MD at 01/23/2018 2:53 PM WSN:[email or web address] ED Course/Re-evaluation ED Course The patient was admitted to a room. A history and physical obtained. Differential diagnoses were considered. The patient was given 60 mg IV and Norflex, 60 mg IM Toradol. Patient did have relief with the injections. Lumbar sacral x-rays were negative for any acute osseous abnormalities. I did review these results with the patient. I did instruct the patient to follow up with Dr. Coelho of [facility] for further evaluation of the lower back pain. The patient was given a prescription for Flexeril, instructed to take ibuprofen or Tylenol as need for pain as well. The patient had no questions or concerns at this time and was discharged home. 01/23/2018 2:33:45 pm the patient states she is feeling a little bit better after the medications, I did tell her I'm still waiting on the official read from radiology. Patient expressed understanding. Decision to Disposition Date: Jan 23, 2018 Decision to Disposition Time: 15:35 Depart Departure Latest Vital Signs Vital Signs Date Time Temp Pulse Resp B/P (MAP) Pulse Ox O2 Delivery O2 Flow Rate FiO2 01/23/18 15:30 83 114/71 (85) 94 01/23/18 13:05 98.7 14 Room Air Impression: Primary Impression: Back pain Condition: Improved Disposition: HOME OR SELF-CARE Referrals: LEEROY COELHO MD 5 Days New Scripts Cyclobenzaprine Hcl (CYCLOBENZAPRINE HCL) 10 Mg Tablet 5-10 MG PO TID Y for MUSCLE SPASMS, #9 TAB Prov: LINNEA YU-ZENAIDA 01/23/18 Patient Instructions: Acute Low Back Pain (ED) Additional Instructions: Take the flexeril for severe pain. Take Ibuprofen or Tylenol as needed for moderated pain. Drink plenty of water. Get plenty of rest. Follow up with Dr. Coelho from [facility]. Return to the ED for any other concerns or worsening symptoms. Problem Qualifiers Primary Impression: Back pain Back pain location: low back pain Chronicity: acute Back pain laterality: bilateral Sciatica presence: without sciatica Qualified Codes: M54.5 - Low back pain LINNEA YU-ZENAIDA Jan 23, 2018 13:16
[2018-01-23] MEDS ORDERED: ORPHENADRINE 60MG/2ML INJ IM ONE (13:30)
[2018-01-23] MEDS ORDERED: KETOROLAC 60 MG/2 ML VIAL IM ONE (13:30)
[2018-01-23] MEDS ORDERED: CYCL10TA29 PO (14:54)
--- NOTE | 2018-01-23 14:58 | RADIOLOGY IMAGING REPORT ---
FACILITY: [facility] [place] PATIENT NAME: Scarlett Ovalle : 1990 MR: [id number] V: [id number] EXAM DATE: ORDERING PHYSICIAN: LINNEA YU TECHNOLOGIST: Location: [facility] - [place] Patient: Scarlett Ovalle : 1990 Visit/Account:[id number] Date of Sevice: 01/23/2018 Exam type: SACROILIAC JOINTS 3 OR > VIEWS History: low back pain into hips. No known injury Comparison: None. Findings: The SI joints are symmetric bilaterally. No significant arthritic change seen. No visualized fractu re. IMPRESSION: 1. Unremarkable SI joints Report Dictated By: Marcelle Sandoval MD at 01/23/2018 2:47 PM Report E-Signed By: Marcelle Sandoval MD at 01/23/2018 2:53 PM WSN:[email or web address]
--- NOTE | 2018-01-23 15:00 | RADIOLOGY IMAGING REPORT ---
FACILITY: [facility] PATIENT NAME: Scarlett Ovalle : 1990 MR: [id number] V: [id number] EXAM DATE: ORDERING PHYSICIAN: LINNEA YU TECHNOLOGIST: Location: [facility] Patient: Scarlett Ovalle : 1990 Visit/Account:[id number] Date of Sevice: 01/23/2018 Exam type: LUMBAR SPINE 4 VIEWS History: low back pain into hips. No known injury Comparison: September 20, 2017. Findings: Five nonrib-bearing lumbar-type vertebral bodies present. There is no evidence of acute fractures or subluxations. The vertebral bodies are normal anatomic alignment. IMPRESSION: 1. No evidence of acute fracture or subluxation lumbar spine Report Dictated By: Marcelle Sandoval MD at 01/23/2018 2:53 PM Report E-Signed By: Marcelle Sandoval MD at 01/23/2018 2:55 PM WSN:[id number]
[2018-01-23 15:30] VITALS: BP 114/71
== END 2018-01-23 15:45 | disposition home or self-care (01) ==
LOC: ER 13:06
DX: M54.5 Low back pain (principal); Z79.899 Other long term (current) drug therapy
CPT/HCPCS: 72120; 72202; 96372; 99284; J1885; J2360

== ENCOUNTER 2018-05-06 01:50 | Emergency (ER) | payer SELFPAY ==
[~2018-05-06 01:50] MED LIST changes: +CYCL10TA29 PO
--- NOTE | 2018-05-06 01:54 | ER Report ---
History and Physical Time Seen By MD: 01:54 HPI/ROS CHIEF COMPLAINT: Right eye tearing and blurry vision HISTORY OF PRESENT ILLNESS: 27-year-old female presents ambulatory to the ER complaining of right eye tearing and blurry vision for one week. She recalls getting no foreign body in it or having recent infection. She denies exposure to pinkeye. Patient denies wearing contacts or glasses. She denies exposure to chemical dusts or dirt. He notes only minimal eye pain. Allergies: Coded Allergies: ondansetron (Verified Allergy, Intermediate, 05/06/18) rash, swelling Home Meds Discontinued Scripts Cyclobenzaprine Hcl (CYCLOBENZAPRINE HCL) 10 Mg Tablet, 5-10 MG PO TID PRN for MUSCLE SPASMS, #9 TAB Prov:LINNEA YU Cathy MASON APPRENTICE-BC 01/23/18 Past Medical/Surgical History The patient has a past medical and surgical history of migraines, depression, broken right pinky. Reviewed Nurses Notes: Yes Old Medical Records Reviewed: Yes Hx Substance Use Disorder: No Constitutional Vital Sign - Last 24 Hours 05/06/18 05/06/18 01:56 02:23 Temp 98.8 Pulse 109 93 Resp 16 B/P (MAP) 144/94 119/82 (94) Pulse Ox 90 92 O2 Delivery Room Air Room Air Physical Exam Vital signs stable, afebrile, pulse ox normal, visual acuity was noted, right eye 20/50, left eye 20/20 General appearance: Alert no distress. HEENT: The right eye has mild injection. There is gross tearing, edema to the lids. There is no mattering noted. Fluoresceins is instilled in the eye. There is some uptake stippling appears that the 3 or 4 o'clock position approximately 5 or 6 mm in diameter. No notable foreign bodies. There were no gross corneal abrasions noted Respiratory: Chest is non tender, lungs are clear to auscultation. Cardiac: Regular rate and rhythm DIFFERENTIAL DIAGNOSIS: After history and physical exam differential diagnosis was considered for conjunctivitis, allergic conjunctivitis, chemical con junctivitis, allergic rhinitis Medical Decision Making ED Course/Re-evaluation ED Course He was admitted to an examination room. H&P was done. The differential diagnoses was considered. On clinical examination. She has a mildly injected right eye with tearing. There is no gross mattering. Patient's visual acuity shows blurry vision and corneal edema. Fluoresceins instilled in the eyes. Examination of the lids lamp shows some mild stippling of the 3 or 4 o'clock position on the iris. Patient be discharged home on Tobrex drops TID and advised to follow-up with Dr. Greyson Velazco respiratory director if unimproved in 2-3 days. Decision to Disposition Date: May 06, 2018 Decision to Disposition Time: 02:12 Depart Departure Latest Vital Signs Vital Signs Date Time Temp Pulse Resp B/P (MAP) Pulse Ox O2 Delivery O2 Flow Rate FiO2 05/06/18 02:23 93 119/82 (94) 92 Room Air 05/06/18 01:56 98.8 16 Impression: Primary Impression: Conjunctivitis Condition: Improved Disposition: HOME OR SELF-CARE Referrals: GREYSON FRANKLIN MD New Scripts No Active Prescriptions or Reported Meds Patient Instructions: Conjunctivitis (ED) Additional Instructions: Use Tobrex drops 1 drop 3 times daily for 3-5 days Follow-up with Dr. Greyson Velazco respiratory director if unimproved in 2-3 days Problem Qualifiers Primary Impression: Conjunctivitis Conjunctivitis type: acute Acute conjunctivitis type: unspecified Laterality: right Qualified Codes: H10.31 - Unspecified acute conjunctivitis, right eye NATAN CORONA DO May 06, 2018 01:54
[2018-05-06] MEDS ORDERED: PROPARACAI/FLUORESCEIN 5 ML OP DROPS OU ONE (02:05)
[2018-05-06] MEDS ORDERED: TOBRAMYCIN/DEX OP SUSP 2.5 ML OD ONE (02:10)
[2018-05-06 02:23] VITALS: BP 119/82
== END 2018-05-06 02:24 | disposition home or self-care (01) ==
LOC: ER 02:17
DX: H10.31 Unspecified acute conjunctivitis, right eye (principal)
CPT/HCPCS: 99282

== ENCOUNTER 2018-05-19 02:29 | Emergency (ER) | payer SELFPAY ==
--- NOTE | 2018-05-19 02:42 | ER Report ---
History and Physical Time Seen By MD: 02:43 Hx. of Stated Complaint: patient states that she needs her knee looked at due to a fall she had a [employer] today; states that it is numb and hear a pop HPI/ROS CHIEF COMPLAINT: knee injury HISTORY OF PRESENT ILLNESS: This is a 27 year old female. She had a fall [place] [employer] this evening. Unsure of mechanism. She has pain in the anterior knee and both sides. No pain in posterior. Hurts to bear weight. Has had tingling and numbness distal to the knee tonight. Can move it, but causes pain. No prior knee problems. Allergies: Coded Allergies: ondansetron (Verified Allergy, Intermediate, 05/19/18) rash, swelling Home Meds No Active Prescriptions or Reported Meds Reviewed Nurses Notes: Yes Hx Substance Use Disorder: No Constitutional Vital Sign - Last 24 Hours 05/19/18 05/19/18 05/19/18 05/19/18 02:38 02:44 02:59 03:00 Pulse 106 96 B/P (MAP) 120/102 (108) 115/81 (92) Pulse Ox 93 92 05/19/18 05/19/18 05/19/18 05/19/18 03:14 03:29 03:30 03:59 Pulse 101 99 88 B/P (MAP) 130/71 (90) Pulse Ox 91 90 05/19/18 05/19/18 04:00 04:14 Pulse 87 B/P (MAP) 115/75 (88) Physical Exam General appearance: Alert no distress. Musculoskeletal: Right knee shows no significant swelling. There is no effusion. There is no obvious deformity of the knee. Patella had pain with palpation and movement. Medial jointline is tender to palpation. Lateral jointline is tender to palpation. Adebayo is negative. The joint is stable with no comparable ligamentous laxity to the knee, however, she does have significant guarding because of pain. There is no tenderness proximal or distal to the knee. Neurologic: The patient has paresthesia sensation distal to the injury. Cardiovascular: Normal pulses and capillary refill in the foot Skin: No rashes. No skin breakdown. DIFFERENTIAL DIAGNOSIS: After history and physical exam differential diagnosis was considered for knee injury including sprain, fracture, meniscus injury and soft tissue injury. Medical Decision Making EKG/Imaging Imaging KNEE 4 VIEW RIGHT Indication: Knee pain. Comparison: None available Findings: 4 views right knee were obtained. No acute fracture or dislocation. The joint spaces are well-maintained. No evidence of joint effusion. There is no focal soft tissue abnormality. No evidence of radiopaque foreign body. IMPRESSION: 1.No acute osseous abnormality of the right knee Report Dictated By: Frank Cervantes at 05/19/2018 3:39 AM ED Course/Re-evaluation ED Course Knee immobilizer after negative x-rays. Conservative management discussed with follow-up with orthopedic surgery recommended. Decision to Disposition Date: May 19, 2018 Decision to Disposition Time: 04:11 Depart Departure Latest Vital Signs Vital Signs Date Time Temp Pulse Resp B/P (MAP) Pulse Ox O2 Delivery O2 Flow Rate FiO2 05/19/18 04:14 87 05/19/18 04:00 115/75 (88) 05/19/18 03:29 90 Impression: Primary Impression: Strain of right knee Condition: Improved Disposition: HOME OR SELF-CARE Referrals: JOSHUA RESENDEZ MD New Scripts No Active Prescriptions or Reported Meds Patient Instructions: Knee Sprain (ED) Additional Instructions: Ibuprofen 200mg over the counter tablets, take 4 tablets three times a day with food. Lortab 5/325, one every 4 hours as needed for pain. Apply ice 20 minutes every 1-2 hours while awake. Knee immobilizer with crutches to help with getting around until you see [facility] for follow-up. Call them for an appointment on Monday morning. Rest the injured area, keep it elevated while at rest. Problem Qualifiers Primary Impression: Strain of right knee Encounter type: initial encounter Qualified Codes: S86.911A - Strain of unspecified muscle(s) and tendon(s) at lower leg level, right leg, initial encounter RALPH GORMAN MD May 19, 2018 02:42
--- NOTE | 2018-05-19 03:46 | RADIOLOGY IMAGING REPORT ---
[place] [facility] [place] NAME: Scarlett Ovalle : 1990 MR: [id number] V: [id number] EXAM DATE: ORDERING PHYSICIAN: RALPH GORMAN TECHNOLOGIST: Location: [facility] [place] Patient: Scarlett Ovalle : 1990 Visit/Account:[id number] Date of Sevice: 05/19/2018 KNEE 4 VIEW RIGHT Indication: Knee pain. Comparison: None available Findings: 4 views right knee were obtained. No acute fracture or dislocation. The joint spaces are well-maintained. No evidence of joint effusion. There is no focal soft tissue abnormality. No evidence of radiopaque foreign body. IMPRESSION: 1.No acute osseous abnormality of the right knee Report Dictated By: Frank Cervantes at 05/19/2018 3:39 AM Report E-Signed By: Frank Cervantes at 05/19/2018 3:41 AM WSN:[id number]
[2018-05-19 04:00] VITALS: BP 115/75
[2018-05-19] MEDS ORDERED: ACET/HYDROC 5/325MG TH ER ONLY 2 TAB/BOTTLE PO ONE (04:10)
== END 2018-05-19 04:33 | disposition home or self-care (01) ==
LOC: ER 03:00
DX: S86.911A Strain of unspecified muscle(s) and tendon(s) at lower leg level, right leg, initial encounter (principal)
CPT/HCPCS: 73564; 99283; L1830

== ENCOUNTER 2018-05-20 02:13 | Emergency (ER) | payer SELFPAY ==
--- NOTE | 2018-05-20 02:28 | ER Report ---
History and Physical Time Seen By MD: 02:28 Hx. of Stated Complaint: PT REPORTS KNEE IMOBILIZER KEEPS FALLING DOWN. PT REPORTS POPING IN KNEE WHEN SHE WALKS AND BRUISING. HPI/ROS CHIEF COMPLAINT: Right knee pain, splint failure HISTORY OF PRESENT ILLNESS: 27-year-old female returns after being seen earlier for a right knee injury. She slipped and fell on the ice at [employer] landing on the inside of her right knee. She's complaining of severe right knee pain. She notes a popping and clicking when she walks. She was seen here earlier and had diagnostic x-rays which were unremarkable. His placed in a knee immobilizer. However, it doesn't seem to fit well and it seems to slide down her leg after only a few steps of ambulation. Patient's wanted to do anything else a be done. Allergies: Coded Allergies: ondansetron (Verified Allergy, Intermediate, 05/20/18) rash, swelling Home Meds No Active Prescriptions or Reported Meds Reviewed Nurses Notes: Yes Old Medical Records Reviewed: Yes Hx Substance Use Disorder: No Constitutional Vital Sign - Last 24 Hours 05/20/18 05/20/18 05/20/18 05/20/18 02:20 02:24 02:28 02:30 Temp 99.8 Pulse 103 95 Resp 16 B/P (MAP) 136/95 (109) 136/95 128/94 (105) Pulse Ox 93 91 O2 Delivery Room Air 05/20/18 05/20/18 03:00 03:04 B/P (MAP) 133/104 (114) 140/88 (105) Physical Exam General appearance: Alert no distress. Respiratory: Chest is non tender, lungs are clear to auscultation. Cardiac: Regular rate and rhythm Extremities: Examination of the right knee reveals some soft tissue swelling over the inferior and medial aspect of the knee joint. There is no esa bruising or abrasions. There is some tenderness over the medial collateral ligament. All ligaments appear intact on stressing. Patient appears her knee to her other knee and notes there is significant swelling. Distal neurovascular functions intact in the right lower extremity. DIFFERENTIAL DIAGNOSIS: After history and physical exam differential diagnosis was considered for sprain, strain, fracture, dislocation, contusion ill fitting splint. Medical Decision Making ED Course/Re-evaluation ED Course Patient was admitted to an examination room. H&P was done. The differential diagnosis was considered. On clinical examination. Patient has diagnoses of the knee sprain. On examination her knee examination shows no signs of internal derangement. On limited exam. Her x-rays were reviewed. Her x-ray report was reviewed as well. Patient had a new knee immobilizer fitted to her leg with Yoav wrap for compression and support. Patient's advised ibuprofen and ice packs. She is advised to follow-up with orthopedics as advised before. Decision to Disposition Date: May 20, 2018 Decision to Disposition Time: 02:35 Depart Departure Latest Vital Signs Vital Signs Date Time Temp Pulse Resp B/P (MAP) Pulse Ox O2 Delivery O2 Flow Rate FiO2 05/20/18 03:04 140/88 (105) 05/20/18 02:28 95 91 05/20/18 02:24 99.8 16 Room Air Impression: Primary Impression: Strain of right knee Additional Impression: Contusion of right knee Condition: Improved Disposition: HOME OR SELF-CARE Referrals: JOSHUA RESENDEZ MD New Scripts No Active Prescriptions or Reported Meds Patient Instructions: Contusion in Adults (ED), Knee Sprain (ED) Additional Instructions: Wear Yoav wraps to provide some traction and home with splint in place. Take ibuprofen 200 mg 3 tablets 3 times a day with food Follow-up with orthopedics as recommended in 5-7 days. Problem Qualifiers Primary Impression: Strain of right knee Encounter type: subsequent encounter Qualified Codes: S86.911D - Strain of unspecified muscle(s) and tendon(s) at lower leg level, right leg, subsequent encounter Additional Impression: Contusion of right knee Encounter type: initial encounter Qualified Codes: S80.01XA - Contusion of right knee, initial encounter NATAN CORONA DO May 20, 2018 02:28
[2018-05-20 03:04] VITALS: BP 140/88
== END 2018-05-20 03:07 | disposition home or self-care (01) ==
LOC: ER 02:30
DX: S86.911A Strain of unspecified muscle(s) and tendon(s) at lower leg level, right leg, initial encounter (principal); S80.01XA Contusion of right knee, initial encounter
CPT/HCPCS: 99282

== ENCOUNTER 2018-06-14 21:39 | Emergency (ER) | payer SELFPAY ==
[~2018-06-14 21:39] MED LIST changes: +DICY20TA70 PO; +OMEP-125 PO
[2018-06-14 22:00] VITALS: BP 127/100
--- NOTE | 2018-06-14 22:09 | ER Report ---
History and Physical Time Seen By MD: 21:49 Hx. of Stated Complaint: PT HAS HAD RIGHT SIDED JAW PAIN FOR MONTHS. STATES IT IS WORSE TONIGHT HPI/ROS CHIEF COMPLAINT: Right jaw pain HISTORY OF PRESENT ILLNESS: 28-year-old female presents to the ER complaining of severe right jaw pain 9/10, aggravated by moving her jaw. Patient notes no recent infection, ear pain or bad teeth. She states his pain is been present for many months. It waxes and wanes. Tonight it quite severe. She was seen here in the ER a few days ago for vomiting blood. Patient admits a history of TMJ disorder. Patient notes no exacerbating or alleviating factors. She denies chewing anything hard or crunchy REVIEW OF SYSTEMS: Respiratory: No cough, no dyspnea. Cardiovascular: No chest pain, no palpitations. Gastrointestinal: No vomiting, no abdominal pain. Musculoskeletal: No back pain. Allergies: Coded Allergies: ondansetron (Verified Allergy, Intermediate, 05/20/18) rash, swelling Home Meds Active Scripts Tramadol Hcl (TRAMADOL HCL) 50 Mg Tablet, 1 TAB PO Q4-6H PRN for PAIN, #15 MG TAKE ONE TO TWO TABLETS BY MOUTH EVERY FOUR TO SIX HOURS NEEDED Prov:NATAN CORONA DO 06/14/18 Discontinued Scripts Dicyclomine Hcl (DICYCLOMINE HCL) 20 Mg Tablet, 20 MG PO Q6-8H PRN for PAIN, #20 TAB Prov:JOSI ABREU V DO 06/10/18 Omeprazole (OMEPRAZOLE) 20 Mg Capsule.dr, 1 CAP PO QDAY, #30 CAP Prov:JOSI ABREU V DO 06/10/18 Promethazine Hcl (PROMETHAZINE HCL) 25 Mg Tablet, 25 MG PO Q8H PRN for NAUSEA/VOMITING, #15 TAB Prov:HARSHAD ABERUSA V DO 06/10/18 Reviewed Nurses Notes: Yes Old Medical Records Reviewed: Yes Hx Smoking: Yes Hx Substance Use Disorder: No Hx Alcohol Use: No Constitutional Vital Sign - Last 24 Hours 06/14/18 21:42 Temp 98.9 Pulse 103 Resp 16 B/P (MAP) 152/108 Pulse Ox 89 O2 Delivery Room Air Physical Exam Vital signs stable, afebrile, pulse ox normal General Appearance: The patient is alert, has no immediate need for airway protection and no current signs of toxicity. Moderate distress HEENT: Pupils equal and round no injection. TMs normal, TMJs, moderately tender on the right, pain with palpation and movement of the jaw. There is no lymph adenopathy, examination of the oropharynx reveals no Respiratory: Chest is non tender, lungs are clear to auscultation. Cardiac: regular rate and rhythm Gastrointestinal: Abdomen is soft and non tender, no masses, bowel sounds normal. Musculoskeletal: Neck: Neck is supple and non tender. No lymphadenopathy, no induration of neck tissues Extremities have full range of motion and are non tender. Skin: No rashes or lesions. DIFFERENTIAL DIAGNOSIS: After history and physical exam differential diagnosis was considered for TMJ disorder, ear pain, otitis media, otitis externa, dental pain, tooth abscess, sinusitis Medical Decision Making ED Course/Re-evaluation ED Course Patient was admitted to an examination room. H&P was done. The differential diagnoses was considered. Patient seems to have symptoms consistent with TMJ. Her tympanic membranes normal. Her oropharynx is unremarkable for dental pain. She'll be covered for pain with tramadol. She is advised to continue ibuprofen 600 mg 3 times daily. She is advised to follow-up with a dentist. She is given a list of local dentists. Decision to Disposition Date: Jun 14, 2018 Decision to Disposition Time: 22:16 Depart Departure Latest Vital Signs Vital Signs Date Time Temp Pulse Resp B/P (MAP) Pulse Ox O2 Delivery O2 Flow Rate FiO2 06/14/18 21:42 98.9 103 16 152/108 89 Room Air Impression: Primary Impression: Sprain of jaw, right side, initial encounter Additional Impression: History of TMJ disorder Condition: Improved Disposition: HOME OR SELF-CARE New Scripts Tramadol Hcl (TRAMADOL HCL) 50 Mg Tablet 1 TAB PO Q4-6H PRN for PAIN, #15 MG TAKE ONE TO TWO TABLETS BY MOUTH EVERY FOUR TO SIX HOURS NEEDED Prov: NATAN CORONA DO 06/14/18 Patient Instructions: Temporomandibular Disorder (ED) Additional Instructions: Take ibuprofen 200 mg 3-4 tablets 3 times a day with food Apply ice or heat to your jaw joint Follow-up with a dentist as soon as possible Problem Qualifiers NATAN CORONA DO Jun 14, 2018 22:09
[2018-06-14] MEDS ORDERED: TRAM-420 PO (22:19)
[2018-06-14] MEDS ORDERED: traMADol 50 MG TAB TH 2 TAB/BOTTLE PO ONE (22:20)
== END 2018-06-14 22:25 | disposition home or self-care (01) ==
LOC: ER 22:16
DX: S03.41XA Sprain of jaw, right side, initial encounter (principal)
CPT/HCPCS: 99283; C9399

== ENCOUNTER → 2018-08-16 | Outpatient (REF) | LOC: RESP 20:51 → EDSTATUS 21:00 | PROVIDERS: ATTEND Family Medicine | DX: G47.33 Obstructive sleep apnea (adult) (pediatric) (principal); G47.36 Sleep related hypoventilation in conditions classified elsewhere ==

== ENCOUNTER 2018-09-17 12:47 | Emergency (ER) | payer SELFPAY ==
--- NOTE | 2018-09-17 12:50 | ER Report ---
History and Physical Time Seen By MD: 12:49 HPI/ROS CHIEF COMPLAINT: Left knee pain HISTORY OF PRESENT ILLNESS: Patient is a 28-year-old female here with complaints of left knee pain after tripping over a gas pump shortly prior to arrival. Patient reportedly landed anteriorly on her knees causing an abrasion to the knee. Patient is able to ambulate after the injury and is neurovascularly intact at time of evaluation. Patient is up-to-date on tetanus immunization. REVIEW OF SYSTEMS: Constitutional: No fever, no chills. Musculoskeletal: + Anterior knee tenderness with abrasion over the patella Skin: Superficial abrasion to the left knee anteriorly Neurological: Neurovascular exam intact distal to the injury site Allergies: Coded Allergies: ondansetron (Verified Allergy, Intermediate, 05/20/18) rash, swelling Home Meds Active Scripts Tramadol Hcl (TRAMADOL HCL) 50 Mg Tablet, 50 MG PO Q6H PRN for PAIN, #6 TAB 0 Refills Prov:SANDEEP WILDER DO 09/17/18 Tramadol Hcl (TRAMADOL HCL) 50 Mg Tablet, 1 TAB PO Q4-6H PRN for PAIN, #15 MG TAKE ONE TO TWO TABLETS BY MOUTH EVERY FOUR TO SIX HOURS NEEDED Prov:NATAN CORONA DO 06/14/18 Hx Smoking: Yes Hx Substance Use Disorder: No Hx Alcohol Use: No Constitutional Vital Sign - Last 24 Hours 09/17/18 12:52 Temp 98.0 Pulse 117 Resp 18 B/P (MAP) 141/90 Pulse Ox 91 O2 Delivery Room Air Physical Exam General Appearance: The patient is alert, has no immediate need for airway protection and no signs of toxicity. No acute distress Neurological: Neurovascular exam intact distal to the injury site Skin: Small superficial abrasion in the anterior patella Musculoskeletal: + Tenderness to palpation of the anterior knee in the region of the patella, knee joint is stable with no laxity on range of motion testing and valgus varus strain, anterior and posterior drawer [ ] DIFFERENTIAL DIAGNOSIS: After history and physical exam differential diagnosis was considered for contusion, abrasion, sprain, fracture, dislocation Medical Decision Making EKG/Imaging Imaging PATIENT NAME: Scarlett Ovalle : 1990 MR: [id number] V: [id number] EXAM DATE: ORDERING PHYSICIAN: SANDEEP WILDER TECHNOLOGIST: Location: [facility] - [place] Patient: Scarlett Ovalle : 1990 Visit/Account:[id number] Date of Sevice: 09/17/2018 Exam type: KNEE 3 VIEW LEFT History: fall Comparison: None. Findings: Three views of the left knee demonstrates no evidence of acute fracture or dislocation or significant arthritic change IMPRESSION: 1. No acute osteoarticular abnormality the left knee is seen ED Course/Re-evaluation ED Course Patient is a 28-year-old female here with complaints of left knee pain after flying anteriorly onto the knee. Patient reportedly tripped over a gas pump. Knee joint is stable with no ligamentous laxity. Patient is neurovascularly intact distal to the injury site. No acute fractures identified on x-ray imaging. Patient was given naproxen 500 mg. Recommended Yoav wrap, ice, elevation as needed. Conservative measures recommended. Close PCP follow-up recommended. Return precautions provided. Decision to Disposition Date: Sep 17, 2018 Decision to Disposition Time: 13:41 Depart Departure Latest Vital Signs Vital Signs Date Time Temp Pulse Resp B/P (MAP) Pulse Ox O2 Delivery O2 Flow Rate FiO2 09/17/18 12:52 98.0 117 18 141/90 91 Room Air Impression: Primary Impression: Contusion of left knee Condition: Improved Disposition: HOME OR SELF-CARE New Scripts Tramadol Hcl (TRAMADOL HCL) 50 Mg Tablet 50 MG PO Q6H PRN for PAIN, #6 TAB 0 Refills Prov: SANDEEP WILDER DO 09/17/18 Patient Instructions: Contusion in Adults (GEN) Additional Instructions: Please rest, ice, elevate, use compressive dressing such as his wraps as needed for symptom management. You may take Tylenol, ibuprofen or naproxen as needed for her primary pain control. You may take 1 tramadol every 8 hours as needed for breakthrough pain control. Please follow-up with your family doctor in the next week for follow-up evaluation and care. Please return if you develop worsening pain, inability to bear weight, laxity of the joint. SANDEEP WILDER DO Sep 17, 2018 12:49
[2018-09-17 12:52] VITALS: BP 141/90
[2018-09-17] MEDS ORDERED: NAPROXEN 500 MG TAB PO ONE (13:00)
--- NOTE | 2018-09-17 13:37 | RADIOLOGY IMAGING REPORT ---
FACILITY: [facility] - [place] PATIENT NAME: Scarlett Ovalle : 1990 MR: [id number] V: [id number] EXAM DATE: ORDERING PHYSICIAN: SANDEEP WILDER TECHNOLOGIST: Location: [facility] - [place] Patient: Scarlett Ovalle : 1990 Visit/Account:[id number] Date of Sevice: 09/17/2018 Exam type: KNEE 3 VIEW LEFT History: fall Comparison: None. Findings: Three views of the left knee demonstrates no evidence of acute fracture or dislocation or significant arthritic change IMPRESSION: 1. No acute osteoarticular abnormality the left knee is seen Report Dictated By: Marcelle Sandoval MD at 09/17/2018 1:31 PM Report E-Signed By: Marcelle Sandoval MD at 09/17/2018 1:32 PM WSN:[id number]
[2018-09-17] MEDS ORDERED: TRAM-420 PO (13:41)
[2018-09-18] MEDS ORDERED: CHOL10005 PO (05:40)
== END 2018-09-17 13:54 | disposition home or self-care (01) ==
LOC: ER 12:51
DX: S80.02XA Contusion of left knee, initial encounter (principal); W01.0XXA Fall on same level from slipping, tripping and stumbling without subsequent striking against object, initial encounter; Y92.524 Gas station as the place of occurrence of the external cause
CPT/HCPCS: 99283

== ENCOUNTER 2018-09-18 05:30 | Emergency (ER) | payer SELFPAY ==
[2018-09-18] MEDS ORDERED: CHOL10005 PO (05:40)
[2018-09-18] MEDS ORDERED: IBUPROFEN 600 MG TAB PO ONE (06:10)
[2018-09-18] MEDS ORDERED: traMADol 50 MG TAB PO ONE (06:10)
--- NOTE | 2018-09-18 06:56 | ER Report ---
History and Physical Time Seen By MD: 06:05 Hx. of Stated Complaint: RT LEG PAIN, HURTS UP INTO HER STOMACHE. PT FELL YESTERDAY, UNSURE IF THIS IS RELATED. TOOK PAIN MEDS AROUNS 2AM (NAPROXEN), DIDN'T HELP HPI/ROS CHIEF COMPLAINT: Leg pain HISTORY OF PRESENT ILLNESS: 28-year-old female was evaluated here yesterday after falling on her knees. At that point, she had pain in her left knee which was imaged and x-ray unrevealing for acute fracture. Patient has subsequently been able to ambulate, she was prescribed tramadol but has not picked it up. At approximately 2 this morning she noted right leg pain that radiates from her knee to her lower abdomen. Patient states she had not noticed this initially after the fall, though she had fallen on her right knee as well. She states that pain is severe, constant, and not relieved by the single Naprosyn pill that she took. Patient has not had similar pain in the past. Pain is located in the a nterior thigh. Patient has tried massage without relief. Of note, patient did have previous fall a couple weeks ago and has had ongoing anterior mulligan numbness from this. She has had no leg swelling, redness. She has no hx DVT/PE in self or family. REVIEW OF SYSTEMS: Constitutional: No fever, no chills. Eyes: no blurred vision ENT: no facial injury Cardiovascular: No chest pain, no palpitations. Respiratory: No cough, no shortness of breath. Gastrointestinal: above Genitourinary: No hematuria, no dysuria Musculoskeletal: No back pain. Skin: No rashes. Neurological: No headache. Remainder of the 14 system rev: Yes Allergies: Coded Allergies: ondansetron (Verified Allergy, Intermediate, 09/18/18) rash, swelling Home Meds Active Scripts Tramadol Hcl (TRAMADOL HCL) 50 Mg Tablet, 50 MG PO Q6H PRN for PAIN, #6 TAB 0 Refills Prov:SANDEEP WILDER DO 09/17/18 Reported Medications Cholecalciferol (Vitamin D3) (VITAMIN D3) 1,000 Unit Tablet, 1000 UNIT PO, TAB 09/18/18 Discontinued Scripts Tramadol Hcl (TRAMADOL HCL) 50 Mg Tablet, 1 TAB PO Q4-6H PRN for PAIN, #15 MG TAKE ONE TO TWO TABLETS BY MOUTH EVERY FOUR TO SIX HOURS NEEDED Prov:NATAN CORONA DO 06/14/18 Reviewed Nurses Notes: Yes Old Medical Records Reviewed: Yes Hx Smoking: Yes Hx Substance Use Disorder: No Hx Alcohol Use: No Constitutional Vital Sign - Last 24 Hours 09/18/18 05:36 Temp 98.0 Pulse 103 Resp 20 B/P (MAP) 143/90 Pulse Ox 94 O2 Delivery Room Air Physical Exam General Appearance: The patient is alert, has no immediate need for airway protection and no signs of toxicity. Eyes: Pupils equal and round no pallor or injection. ENT, Mouth: Mucous membranes are moist. Respiratory: There are no retractions, lungs are clear to auscultation. Cardiovascular: Regular rate and rhythm. No m/r/g Gastrointestinal: Abdomen nontender with exception of right lower quadrant just superior to inguinal ligament. She has no palpable hernia. Neurological: alert, oriented, moves all ext Skin: Warm and dry, no rashes. Musculoskeletal: Extremities are nontender, nonswollen and have full range of motion with exception of right leg. Pt has right anterior thigh ttp along rectus femoris muscle without palpable quad tendon defect, without erythema, edema, fluctuance. Pt has abrasions/ecchymoses on both knees without e/o cellulitis. DIFFERENTIAL DIAGNOSIS: After history and physical exam differential diagnosis was considered for dvt, muscle/tendon rupture, fracture, ovarian torsion, appendicitis, or other emergent etiology of symptoms. Medical Decision Making Data Points Laboratory Hematology Test 09/18/18 06:19 D-Dimer Quantitative (PE/DVT) 0.28 ug/ml (0-0.50) Chemistry Test 09/18/18 06:19 D-Dimer Quantitative (PE/DVT) 0.28 ug/ml (0-0.50) Coagulation Test 09/18/18 06:19 D-Dimer Quantitative (PE/DVT) 0.28 ug/ml ED Course/Re-evaluation ED Course 28-year-old female presents one day after fall initially with pain on left side, now with pain on right side. Given fall as well as fall 2 weeks ago and location of pain, I considered DVT, though with low pretest probability. D-dimer is negative, will not pursue further at this point. Patient does not have palpable defect though does have tenderness along the muscle, most consistent with muscle strain. Given radiation into abdomen, I considered possibility of psoas muscle involvement as well. Ultimately, is reasonable for discharge, though with strict return precautions as I discussed with patient that this may be coincidental and atypical presentation of appendicitis, ovarian torsion, hernia, or other emergent etiology. Decision to Disposition Date: Sep 18, 2018 Decision to Disposition Time: 07:03 Depart Departure Latest Vital Signs Vital Signs Date Time Temp Pulse Resp B/P (MAP) Pulse Ox O2 Delivery O2 Flow Rate FiO2 09/18/18 05:36 98.0 103 20 143/90 94 Room Air Impression: Primary Impression: Leg pain, anterior Condition: Improved Disposition: HOME OR SELF-CARE Referrals: NAY NEGRETE MD (PCP) 2 Days Patient Instructions: Leg Pain (ED) Additional Instructions: As we discussed, your exam is most consistent with a muscle strain. I recommend you ice 20 minutes at a time every hour, use 500mg naproxyn every 12 hours, tylenol and tramadol as needed, and walk as you feel safe doing. However, as your radiates to the abdomen, it is possible this is a coincidental start of another disease process. Therefore, please return for uncontrolled pain, vomiting, fevers, or any other concerns. If your pain does not improve in 2 days, follow up with your primary doctor for further evaluation. Problem Qualifiers Primary Impression: Leg pain, anterior Laterality: right Qualified Codes: M79.604 - Pain in right leg NAJMA ASHFORD MD Sep 18, 2018 06:56
[2018-09-18 06:58] VITALS: BP 121/62
== END 2018-09-18 06:59 | disposition home or self-care (01) ==
LOC: ER 06:44
DX: M79.604 Pain in right leg (principal)
CPT/HCPCS: 36415; 85379; 99283

== ENCOUNTER 2018-11-10 23:39 | Emergency (ER) | payer SELFPAY ==
[~2018-11-10 23:39] MED LIST changes: +CHOL10005 PO
--- NOTE | 2018-11-10 23:53 | ER Report ---
History and Physical Time Seen By MD: 23:47 Hx. of Stated Complaint: PATIENT REPORTS LEFT BREAST PAIN THAT STARTED 1 WEEK AGO HPI/ROS CHIEF COMPLAINT: L breast pain thru to chest HISTORY OF PRESENT ILLNESS: Pt states that she started a week ago with pain in her left lateral breast. PT thought she might have slept on her breast wrong. pain is now radiation thru her breast and chest to her back. Pain is sharp. pain is worse with sneezing, coughing or moving/twisting her chest wall. Pt tried ibuprofen 200mg every 6 hours but not helping. Pt denies pain with deep breath. Pt denies any rash. No nipple discharge. REVIEW OF SYSTEMS: Constitutional: No fever, no chills. Eyes: No discharge. ENT: No sore throat. Cardiovascular: No chest pain, no palpitations. Respiratory: No cough, no shortness of breath. Gastrointestinal: No abdominal pain, no vomiting. Genitourinary: No hematuria. Musculoskeletal:+ back pain, + chest wall pain, + left breast pain Skin: No rashes. Neurological: no numbness Allergies: Coded Allergies: ondansetron (Verified Allergy, Intermediate, 11/10/18) rash, swelling Home Meds Reported Medications Cholecalciferol (Vitamin D3) (VITAMIN D3) 1,000 Unit Tablet, 1000 UNIT PO, TAB 09/18/18 Discontinued Scripts Tramadol Hcl (TRAMADOL HCL) 50 Mg Tablet, 50 MG PO Q6H PRN for PAIN, #6 TAB 0 Refills Prov:SANDEEP WILDER Steven DO 09/17/18 Past Medical/Surgical History Pmhx; depression, migraine Pshx: 5th pinky Reviewed Nurses Notes: Yes Old Medical Records Reviewed: Yes Hx Smoking: Yes Hx Substance Use Disorder: No Hx Alcohol Use: No Constitutional Vital Sign - Last 24 Hours 11/10/18 11/10/18 11/11/18 11/11/18 23:43 23:44 00:09 00:39 Temp 98.1 Pulse 122 118 Resp 19 17 17 B/P (MAP) 152/130 152/130 (137) Pulse Ox 91 91 O2 Delivery Room Air 11/11/18 11/11/18 11/11/18 00:44 01:00 02:00 Pulse 127 Resp 18 B/P (MAP) 111/80 (90) 145/113 (124) Pulse Ox 89 Physical Exam General Appearance: The patient is alert, has no immediate need for airway protection and no signs of toxicity. Eyes: Pupils equal and round no pallor or injection, EOMI ENT: no pharyngeal erythema or exudates, Mucous membranes are moist Respiratory: There are no retractions, lungs are clear to auscultation. Cardiovascular: Regular rate and rhythm. pulses are equal and symmetrical Gastrointestinal: Abdomen is soft and non tender, no masses, bowel sounds normal, no guarding, no rigidity or rebound, obese Neurological: Cranial nerves II-XII grossly intact, no sensory or motor loss Skin: Warm and dry, no rashes. Musculoskeletal: Neck is supple non tender, no vertebral tenderness Extremities are nontender, nonswollen and have full range of motion. Breast: no palpable mass, no nipple drainage, + tenderness with palpation of lateral breast, no enlarged or tender axilla nodes DIFFERENTIAL DIAGNOSIS: After history and physical exam differential diagnosis was considered for breast cancer, chest wall strain, ptx, intercoastal muscle strain, THorasic herniated disc, early shingles Medical Decision Making Data Points Result Diagram: 11/11/180 11/11/18 0040 Laboratory Hematology Test 11/11/18 00:40 Red Blood Count 5.48 M/uL (4.17-5.56) Mean Corpuscular Volume 89.9 fL (80.0-96.0) Mean Corpuscular Hemoglobin 30.5 pg (26.0-33.0) Mean Corpuscular Hemoglobin Concent 33.9 g/dL (32.0-36.0) Red Cell Distribution Width 13.9 % (11.5-14.5) Mean Platelet Volume 10.1 fL (7.2-11.1) Neutrophils (%) (Auto) 77.1 % (39.4-72.5) Lymphocytes (%) (Auto) 13.6 % (17.6-49.6) Monocytes (%) (Auto) 5.8 % (4.1-12.4) Eosinophils (%) (Auto) 2.4 % (0.4-6.7) Basophils (%) (Auto) 1.1 % (0.3-1.4) Nucleated RBC Relative Count (auto) 0.1 /100WBC Neutrophils # (Auto) 11.4 K/uL (2.0-7.4) Lymphocytes # (Auto) 2.0 K/uL (1.3-3.6) Monocytes # (Auto) 0.9 K/uL (0.3-1.0) Eosinophils # (Auto) 0.4 K/uL (0.0-0.5) Basophils # (Auto) 0.2 K/uL (0.0-0.1) Nucleated RBC Absolute Count (auto) 0.01 K/uL D-Dimer Quantitative (PE/DVT) 0.57 ug/ml (0-0.50) Sodium Level 141 mmol/L (137-145) Potassium Level 4.0 mmol/L (3.5-5.0) Chloride Level 106 mmol/L (98-107) Carbon Dioxide Level 25 mmol/L (22-31) Blood Urea Nitrogen 12 mg/dl (7-18) Creatinine 0.60 mg/dl (0.52-1.04) Glomerular Filtration Rate Calc > 60.0 Random Glucose 127 mg/dl (75-110) Calcium Level 9.6 mg/dl (8.4-10.2) Troponin I < 0.012 ng/ml Human Chorionic Gonadotropin, Qual Negative (NEGATIVE) Chemistry Test 11/11/18 00:40 White Blood Count 14.8 k/uL (4.5-11.0) Red Blood Count 5.48 M/uL (4.17-5.56) Hemoglobin 16.7 g/dL (12.0-16.0) Hematocrit 49.3 % (34.0-47.0) Mean Corpuscular Volume 89.9 fL (80.0-96.0) Mean Corpuscular Hemoglobin 30.5 pg (26.0-33.0) Mean Corpuscular Hemoglobin Concent 33.9 g/dL (32.0-36.0) Red Cell Distribution Width 13.9 % (11.5-14.5) Platelet Count 314 K/uL (150-450) Mean Platelet Volume 10.1 fL (7.2-11.1) Neutrophils (%) (Auto) 77.1 % (39.4-72.5) Lymphocytes (%) (Auto) 13.6 % (17.6-49.6) Monocytes (%) (Auto) 5.8 % (4.1-12.4) Eosinophils (%) (Auto) 2.4 % (0.4-6.7) Basophils (%) (Auto) 1.1 % (0.3-1.4) Nucleated RBC Relative Count (auto) 0.1 /100WBC Neutrophils # (Auto) 11.4 K/uL (2.0-7.4) Lymphocytes # (Auto) 2.0 K/uL (1.3-3.6) Monocytes # (Auto) 0.9 K/uL (0.3-1.0) Eosinophils # (Auto) 0.4 K/uL (0.0-0.5) Basophils # (Auto) 0.2 K/uL (0.0-0.1) Nucleated RBC Absolute Count (auto) 0.01 K/uL D-Dimer Quantitative (PE/DVT) 0.57 ug/ml (0-0.50) Glomerular Filtration Rate Calc > 60.0 Calcium Level 9.6 mg/dl (8.4-10.2) Troponin I < 0.012 ng/ml Human Chorionic Gonadotropin, Qual Negative (NEGATIVE) Coagulation Test 11/11/18 00:40 D-Dimer Quantitative (PE/DVT) 0.57 ug/ml ED Course/Re-evaluation ED Course check cxr. Did discuss pt following up with residence manager if continues to have breast pain. tree sapper may want to order Mammogram Re-evaluation 11/11/2018 12:13:23 am Pt was tachycardic on ER arrival. Reviewing pts last ED visits on 06/14/18, 09/17/18 and 09/18/18 pt was tachy at every visit. Two visits were pain related. Will obtain cxr to further look at chest. Pt did have a d- dimer on September visit which was normal 0100 + d-dimer with ekg sinus tack will obtain CT for PE 11/11/2018 2:[address] is negative for PE. Pt states her pain is improved after the norflex and loratab. PT instructed to follow up with a mammogram if pain continues in breast. Decision to Disposition Date: November 11, 2018 Decision to Disposition Time: 02:26 Depart Departure Latest Vital Signs Vital Signs Date Time Temp Pulse Resp B/P (MAP) Pulse Ox O2 Delivery O2 Flow Rate FiO2 11/11/18 02:00 145/113 (124) 11/11/18 00:44 127 18 89 11/10/18 23:43 98.1 Room Air Impression: Primary Impression: Breast pain in female Additional Impressions: Chest wall pain Sinus tachycardia Condition: Improved Disposition: HOME OR SELF-CARE Referrals: NAY NEGRETE MD (PCP) PAWEL VICENTE MD New Scripts Methocarbamol (ROBAXIN-750) 750 Mg Tablet 750 MG PO Q4-6H PRN for MUSCLE SPASMS, #21 TAB Prov: JOSI ABREU DO 11/11/18 Patient Instructions: GENERAL ER DISCHARGE INSTRUCTIONS Additional Instructions: motrin (ibuprofen) 600mg every 6 hours as needed for pain Robaxin one every 4 hours as needed for muscle spasms Hydrocodone with tylenol one every 6 hours as needed for moderate to severe pain. If symptoms do not improve then you will need to follow up with your family doctor. If you continue to have pain in your breast then I suggest your family doctor schedule a mammogram to look closer at your breast tissue. Problem Qualifiers JOSI ABREU DO November 10, 2018 23:53
[2018-11-10] MEDS ORDERED: APAP/HYDROCODONE 325/5 TAB PO ONE (23:55)
[2018-11-10] MEDS ORDERED: IBUPROFEN 600 MG TAB PO ONE (23:55)
[2018-11-10] MEDS ORDERED: ORPHENADRINE CITR 100 MG TABSR PO ONE (23:55)
--- NOTE | 2018-11-11 00:30 | RADIOLOGY IMAGING REPORT ---
FACILITY: [facility] PATIENT NAME: Scarlett Ovalle : 1990 MR: [id number] V: [id number] EXAM DATE: ORDERING PHYSICIAN: JOSI ABREU TECHNOLOGIST: Location: [facility] Patient: Scarlett Ovalle : 1990 Visit/Account:[id number] Date of Sevice: 11/10/2018 EXAMINATION: Chest radiographs 2 views HISTORY: Left-sided chest wall pain. COMPARISON: 09/03/2016. FINDINGS: PA and lateral views of the chest are submitted. Lines/tubes: None. Lungs/pleura: No focal consolidation or pleural effusion. Heart: Negative. Mediastinum: Negative. Bony structures/body wall: Negative. IMPRESSION: No radiographic evidence of acute cardiopulmonary disease. Report Dictated By: Merly Morgan MD at 11/11/2018 12:25 AM Report E-Signed By: Merly Morgan MD at 11/11/2018 12:26 AM WSN:[id number]
--- NOTE | 2018-11-11 00:36 | EKG ---
FACILITY: [facility] PATIENT NAME: MASTER EPSTEIN : [id number] MR: [id number] V: [id number] EXAM DATE: ORDERING PHYSICIAN: JOSI ABREU TECHNOLOGIST: Test Reason : chest pain Blood Pressure : / mmHG Vent. Rate : 133 BPM Atrial Rate : 133 BPM P-R Int : 136 ms QRS Dur : 072 ms QT Int : 290 ms P-R-T Axes : 038 111 018 degrees QTc Int : 431 ms Sinus tachycardia Septal infarct , age undetermined vs lead placement No ST-T abnormalities No previous ECGs available Confirmed by SANTI MITCHELL ([id number]) on 11/11/2018 6:30:12 AM Referred By: Confirmed By:SANTI MITCHELL
[2018-11-11 00:56] LABS: PLATELET COUNT, AUTOMATED 314 K/uL (150-450)
[2018-11-11] MEDS ORDERED: IOPAMIDOL 76% 100 ML INFUS BTL 100 ML ONE (01:35)
[2018-11-11] MEDS ORDERED: NS(*) 0.9% 50 ML BAG 50 ML ONE (01:36)
[2018-11-11 02:00] VITALS: BP 145/113
--- NOTE | 2018-11-11 02:15 | RADIOLOGY IMAGING REPORT ---
[place] [facility] [place] Scarlett Ovalle : 1990 MR: [id number] V: [id number] EXAM DATE: ORDERING PHYSICIAN: JOSI ABREU TECHNOLOGIST: Location: [facility] Patient: Scarlett Ovalle : 1990 Visit/Account:[id number] Date of Sevice: 11/11/2018 EXAMINATION: CTA chest with IV contrast HISTORY: Pleuritic left-sided chest pain with positive d-dimer. COMPARISON: Chest radiograph from 11/10/2018. TECHNIQUE: Pulmonary embolus protocol - Thin-slice axial imaging of the chest was performed during maximal pulmonary arterial opacification with intravenous nonionic iodinated contrast. 3D sagittal an d coronal slab MIPs and 2D reconstructions in the coronal and sagittal planes were performed to aid i n pulmonary embolus detection. Gasoline Service Attendant images have been stored on PACS. CONTRAST: 75 mL of IV Isovue-370. One of the following dose optimization techniques was utilized in the performance of this exam: Autom ated exposure control; adjustment of the mA and/or kV according to the patient's size; or use of an i terative reconstruction technique. Specific details can be referenced in the facility's radiology C T exam operational policy. FINDINGS: CTA CHEST: Please note that this exam is optimized for assessment of the pulmonary arteries and is not intended as a diagnostic study of the thoracic aorta, coronary arteries or venous structures. Angiographic Findings: Pulmonary arteries: There are no filling defects in the main, right, left, lobar, segmental or visual ized sub-segmental branches of the pulmonary arterial system. Most of the subsegmental pulmonary art eries in the lower lungs are not well visualized due to mild motion. No intraluminal webs or bronchia l collaterals. Other vasculature: Negative. Additional non-angiographic findings: Lungs/pleura: Negative. Mediastinum/andrea: Negative. Heart/pericardium: Negative. Musculoskeletal/body wall: Negative. Lymph nodes: Negative. Upper abdomen: There is hepatomegaly with moderate diffuse fatty infiltration of the visualized live r. Lower neck: Negative. IMPRESSION: 1. No evidence of acute or chronic pulmonary embolism. Subsegmental pulmonary arteries in the lower l ungs are partly obscured by motion. 2. Hepatomegaly with moderate diffuse fatty infiltration of the liver, partly visualized. Report Dictated By: Merly Morgan MD at 11/11/2018 2:06 AM Report E-Signed By: Merly Morgan MD at 11/11/2018 2:11 AM WSN:[id number]
[2018-11-11] MEDS ORDERED: METH-543 PO (02:29)
[2018-11-11] MEDS ORDERED: LOR5/325 PO (02:29)
== END 2018-11-11 02:39 | disposition home or self-care (01) ==
LOC: ER 23:49
DX: N64.4 Mastodynia (principal); R07.89 Other chest pain; R00.0 Tachycardia, unspecified
CPT/HCPCS: 71046; 71275; 84484; 84703; 85025; 85379; 93005; 99284; J7050; Q9967; 82310; 82374; 82435; 82565; 82947; 84132; 84295; 84520

== ENCOUNTER 2019-01-25 19:03 | Emergency (ER) | payer SELFPAY ==
[~2019-01-25 19:03] MED LIST changes: +LOR5/325 PO; -OMEP-125 PO; +OMEP-126 PO
--- NOTE | 2019-01-25 19:15 | ER Report ---
History and Physical Time Seen By MD: 19:12 Hx. of Stated Complaint: PT REPORTS GREEN DISCHARGE HAS BEEN COMING FROM RIGHT EYE. SHE SAW HER PCP AT [facility] AND THEY GAVE HER DROPS BACK IN SEPTEMBER. HPI/ROS CHIEF COMPLAINT: Right eye discharge, blurry vision HISTORY OF PRESENT ILLNESS: Patient is a 28 year old female presenting to ED with right eye green discharge since September,. She wakes up with her eye stuck closed because of discharge while sleeping. Went to [facility] once for this who gave her some eye drops but she states they did not help and is not sure what they were called. Denies pain, double vision, spotting in her vision or a history of allergies. Has a history of migraines that she now has an ear piercing for since November. States she used to get right sided weakness with right eye vision loss with her migraines. Has not had a migraine since the piercing but has had transient loss of vision twice, the last time being yesterday afternoon which lasted 20 minutes. Allergies: Coded Allergies: ondansetron (Verified Allergy, Intermediate, 01/25/19) rash, swelling Home Meds Active Scripts Cromolyn Sodium (CROMOLYN SODIUM) 10 Ml Drops, 2 GTT OP Q6H, #1 BOT Prov:FABIAN CURIELSSE ACCOUNT AUDITOR 01/25/19 Discontinued Reported Medications Cholecalciferol (Vitamin D3) (VITAMIN D3) 1,000 Unit Tablet, 1000 UNIT PO, TAB 09/18/18 Discontinued Scripts Hydrocodone Bit/Acetaminophen (HYDROCODON-ACETAMINOPHEN 5-325) 1 Each Tablet, 1 EACH PO Q4-6H PRN for SEVERE PAIN, #15 TAB Prov:JOSI ABREU V DO 11/11/18 Methocarbamol (ROBAXIN-750) 750 Mg Tablet, 750 MG PO Q4-6H PRN for MUSCLE SPASMS, #21 TAB Prov:HARSHAD ABREUSA V DO 11/11/18 Past Medical/Surgical History Migraines, bleeding ulcer, left pinky fracture, depression, right pinky surgery Reviewed Nurses Notes: Yes Hx Smoking: Yes Hx Substance Use Disorder: No Hx Alcohol Use: No Constitutional Vital Sign - Last 24 Hours 01/25/19 01/25/19 01/25/19 01/25/19 19:06 19:10 19:18 19:30 Temp 98.9 Pulse 126 115 Resp 18 B/P (MAP) 138/93 (108) 138/93 124/85 (98) Pulse Ox 90 89 O2 Delivery Room Air 01/25/19 01/25/19 01/25/19 01/25/19 19:33 19:48 20:00 20:03 Pulse 104 101 104 B/P (MAP) 119/62 (81) Pulse Ox 89 93 89 Physical Exam General appearance: Alert no distress. Eyes: EOMI, visual acuity 20/20 left, 20/25 right, visual rodriguez intact, no injection bilaterally, discharge noted at caruncle on right, PERRLA Respiratory: Chest is non tender, lungs are clear to auscultation. Cardiac: Regular rate and rhythm DIFFERENTIAL DIAGNOSIS: After history and physical exam differential diagnosis was considered for bacterial conjunctivitis, viral conjunctivitis, allergic conjunctivitis, iritis, corneal abrasion, corneal ulcer Medical Decision Making ED Course/Re-evaluation ED Course Patient presented to ED complaining of green right eye discharge and intermittent blurry vision that started in 09/2018. She wakes up with the discharge that causes her eye to be crusted shut. blurry vision has only happened ~30 min x2. No vision loss or headaches. History of migraines. [facility] her [facility] drops but didn't help, unknown of name of eye drops. Physical exam was benign, no acute abnormalities. Differential diagnoses considered. given Cromolyn eye drops and instructed to follow up [facility]. patient understood condition and agreed with treatment plan. Decision to Disposition Date: Jan 25, 2019 Decision to Disposition Time: 20:02 Depart Departure Latest Vital Signs Vital Signs Date Time Temp Pulse Resp B/P (MAP) Pulse Ox O2 Delivery O2 Flow Rate FiO2 01/25/19 20:03 104 89 01/25/19 20:00 119/62 (81) 01/25/19 19:10 98.9 18 Room Air Impression: Primary Impression: Allergic conjunctivitis Condition: Improved Disposition: HOME OR SELF-CARE Referrals: NAY NEGRETE MD (PCP) New Scripts Cromolyn Sodium (CROMOLYN SODIUM) 10 Ml Drops 2 GTT OP Q6H, #1 BOT Prov: EDDIE CURIEL ACCOUNT AUDITOR 01/25/19 Patient Instructions: Conjunctivitis (ED) Additional Instructions: Use eye drops as instructed. [facility]. Return to ED if any loss of vision occurs. Problem Qualifiers Primary Impression: Allergic conjunctivitis Laterality: right Qualified Codes: H10.11 - Acute atopic conjunctivitis, right eye EDDIE CURIEL Jan 25, 2019 19:15
[2019-01-25 20:00] VITALS: BP 119/62
[2019-01-25] MEDS ORDERED: CROM10DR8 OP (20:00)
== END 2019-01-25 20:07 | disposition home or self-care (01) ==
LOC: ER 19:23
DX: H10.11 Acute atopic conjunctivitis, right eye (principal)
CPT/HCPCS: 99282